=== PATIENT | female | born 1960 | race Caucasian/White ===

== ENCOUNTER 2020-05-14 08:33 | Outpatient (REF) | payer BC, SELFPAY ==
[2020-05-14 12:08] LABS: Vitamin D 25-OH Total 25.7 ng/mL (>30)
== END 2020-05-14 08:34 | disposition home or self-care (01) ==
LOC: HO.HMGCLDS 08:33
PROVIDERS: PCP Internal Medicine; Visit Provider Internal Medicine
DX: E55.9 Vitamin D deficiency, unspecified (principal)
CPT/HCPCS: 82306

== ENCOUNTER 2021-05-19 08:00 | Outpatient (REF) | payer BC, SELFPAY ==
[2021-05-19 11:36] LABS: Hematocrit 42.7 % (37-47); Hemoglobin 13.6 g/dl (12.0-16.0); Mean Corpuscular HGB Conc 31.9 g/dl (31.0-35.0); Mean Platelet Volume 12.5 fL (9.4-12.3); Platelet Count 195 X10*3/uL (160-400); Red Blood Count 4.69 X10*6/uL (4.20-5.50); Red Cell Distribution Width 13.3 % (11.0-16.0)
[2021-05-19 11:45] LABS: Alanine Aminotransferase 24 U/L (0-31); Albumin Level 4.2 g/dL (3.5-5.0); Alkaline Phosphatase 68 U/L (39-117); Anion Gap 10 (12-20); Aspartate Amino Transferase 18 U/L (5-31); Bilirubin Total 0.4 mg/dL (0.0-1.0); Blood Urea Nitrogen 15 mg/dL (9-16); Calcium 9.7 mg/dL (8.4-10.2); Carbon Dioxide 29 mmol/L (22-29); Chloride 107 mmol/L (96-108); Cholesterol 175 mg/dL; Estimated Glomerular Filt Rate > 60; Glucose Fasting 89 mg/dL (60-99); HDL Cholesterol 54 mg/dL; LDL Cholesterol Calculated 106 mg/dl; Potassium 5.4 mmol/L (3.3-5.1); Sodium 141 mmol/L (135-145); Total Protein 6.9 g/dL (6.5-8.0); Triglycerides 77 mg/dL
[2021-05-19 12:10] LABS: Vitamin D 25-OH Total 25.8 ng/mL (>30)
== END 2021-05-19 08:01 | disposition home or self-care (01) ==
LOC: HO.HMGCLDS 08:00
PROVIDERS: PCP Internal Medicine; Visit Provider Internal Medicine
DX: Z00.00 Encounter for general adult medical examination without abnormal findings (principal)
CPT/HCPCS: 36415; 80053; 80061; 82306; 85027

== ENCOUNTER 2021-06-16 16:42 | Outpatient (REF) | payer BC, SELFPAY ==
[2021-06-16 17:28] LABS: Influenza A PCR NEGATIVE (Negative); Influenza B PCR NEGATIVE (Negative); Resp Syncy Virus RNA Qual PCR NEGATIVE (Negative); SARS COV2 PCR INHOUSE NEGATIVE (Negative)
== END 2021-06-16 16:43 | disposition home or self-care (01) ==
LOC: HO.LNP 16:42
PROVIDERS: Visit Provider Physician Assistant Medical
DX: Z20.822 Contact with and (suspected) exposure to COVID-19 (principal); J06.9 Acute upper respiratory infection, unspecified
CPT/HCPCS: 0241U

== ENCOUNTER 2021-08-10 15:14 | Outpatient (REF) | payer OTHER, SELFPAY ==
[2021-08-10 17:06] LABS: Vitamin D 25-OH Total 33.1 ng/mL (>30)
== END 2021-08-10 15:15 | disposition home or self-care (01) ==
LOC: HO.HMGCLDS 15:14
PROVIDERS: PCP Internal Medicine; Visit Provider Internal Medicine
DX: E55.9 Vitamin D deficiency, unspecified (principal)
CPT/HCPCS: 36415; 82306

== ENCOUNTER 2022-02-18 11:03 | Outpatient (REF) | payer OTHER, SELFPAY ==
--- NOTE | ~2022-02-18 | XR_ITS ---
EXAMINATION: XR CHEST CLINICAL INFORMATION: Encountered for general medical examination COMPARISON: None TECHNIQUE: 2 views of the chest were obtained. FINDINGS: Cardiac silhouette is normal in size. The lungs are well aerated. There is no lobar consolidation. No pleural effusion or pneumothorax. Moderate degenerative changes of the spine. XR/XR chest 2V IMPRESSION: No acute pulmonary pathology.
== END 2022-02-18 11:04 | disposition home or self-care (01) ==
LOC: HO.HMGCX 11:03
PROVIDERS: PCP Internal Medicine; Visit Provider Internal Medicine
DX: Z00.00 Encounter for general adult medical examination without abnormal findings (principal)
CPT/HCPCS: 71046

== ENCOUNTER 2022-02-19 06:07 | Outpatient (REF) | payer OTHER, SELFPAY ==
[2022-02-19 11:08] LABS: MANUAL DIFF FLAG NO
[2022-02-19 11:17] LABS: Basophils Percent Auto 0.5 % (0-2); Eosinophils Absolute Auto 0.1 X10*3/uL (0.0-0.4); Hematocrit 40.1 % (37.0-47.0); Imm Gran Abs Auto 0.01 X10*3/uL (0.00-0.03); Imm Gran Pct Auto 0.2 % (0.0-0.4); Lymphocytes Absolute Auto 2.1 X10*3/uL (1.2-4.9); Lymphocytes Percent Auto 31.5 % (20-40); Mean Corpuscular HGB Conc 32.4 g/dl (31.0-35.0); Mean Corpuscular Hemoglobin 29.5 pg (27.0-33.0); Mean Corpuscular Volume 90.9 fL (80.0-98.0); Monocytes Absolute Auto 0.6 X10*3/uL (0.1-1.2); Monocytes Percent Auto 9.2 % (2-11); Neutrophils Absolute Auto 3.7 x10*3/uL (2.0-8.3); Neutrophils Percent Auto 56.6 % (45-73); Platelet Count 159 X10*3/uL (160-400); Red Blood Count 4.41 X10*6/uL (4.20-5.50); Red Cell Distribution Width 13.6 % (11.0-16.0); White Blood Count 6.5 X10*3/uL (4.8-10.8)
[2022-02-19 12:03] LABS: Alanine Aminotransferase 23 U/L (0-31); Alkaline Phosphatase 60 U/L (39-117); Anion Gap 13 (12-20); Aspartate Amino Transferase 21 U/L (5-31); Bilirubin Total 0.5 mg/dL (0.0-1.0); Blood Urea Nitrogen 15 mg/dL (9-16); C Reactive Protein 0.18 mg/dL (< or = 0.50); Calcium 9.2 mg/dL (8.4-10.2); Carbon Dioxide 28 mmol/L (22-29); Chloride 107 mmol/L (96-108); Cholesterol 174 mg/dL; Estimated Glomerular Filt Rate > 60; Glucose Fasting 91 mg/dL (60-99); HDL Cholesterol 65 mg/dL; LDL Cholesterol Calculated 94 mg/dl; Potassium 4.5 mmol/L (3.3-5.1); Sodium 143 mmol/L (135-145); Total Protein 6.6 g/dL (6.5-8.0); Triglycerides 78 mg/dL
[2022-02-23 13:46] LABS: Anti DNA DS Antibody <1 IU/mL
[2022-02-24 23:36] LABS: Complement C3 127 mg/dL (83-193)
== END 2022-02-19 06:08 | disposition home or self-care (01) ==
LOC: HO.HMGCLDS 06:07
PROVIDERS: Visit Provider Internal Medicine
DX: Z00.00 Encounter for general adult medical examination without abnormal findings (principal); R21 Rash and other nonspecific skin eruption; J40 Bronchitis, not specified as acute or chronic; E55.9 Vitamin D deficiency, unspecified
CPT/HCPCS: 36415; 80053; 80061; 85025; 86140; 86160; 86225

== ENCOUNTER 2022-03-15 10:49 | Outpatient (REF) | payer OTHER, SELFPAY ==
[2022-03-15 14:42] LABS: Vitamin D 25-OH Total 56.2 ng/mL (>30)
== END 2022-03-15 10:50 | disposition home or self-care (01) ==
LOC: HO.HMGCLDS 10:49
PROVIDERS: PCP Internal Medicine; Visit Provider Internal Medicine
DX: E55.9 Vitamin D deficiency, unspecified (principal)
CPT/HCPCS: 36415; 82306

== ENCOUNTER 2022-07-07 14:30 | Outpatient (REF) | payer OTHER, SELFPAY ==
[2022-07-07 15:21] LABS: Influenza A PCR POSITIVE (Negative); Influenza B PCR NEGATIVE (Negative); Resp Syncy Virus RNA Qual PCR NEGATIVE (Negative); SARS COV2 PCR INHOUSE NEGATIVE (Negative)
== END 2022-07-07 14:31 | disposition home or self-care (01) ==
LOC: HO.LNP 14:30
PROVIDERS: Visit Provider Nurse Practitioner Family
DX: Z20.822 Contact with and (suspected) exposure to COVID-19 (principal); R68.89 Other general symptoms and signs
CPT/HCPCS: 0241U

== ENCOUNTER 2022-12-28 11:25 | Outpatient (REF) | payer OTHER, SELFPAY ==
--- NOTE | ~2022-12-28 | XR_ITS ---
EXAMINATION: XR ANKLE, RIGHT CLINICAL INFORMATION: Pain in right ankle and joints of right foot COMPARISON: None available. TECHNIQUE: AP, lateral, and mortise views of the right ankle. FINDINGS: There is marked soft tissue swelling over the lateral malleolus. No fracture. Well-corticated ossific density inferior to the medial malleolus and small linear density adjacent to the medial malleolus are likely related to old trauma. Alignment is anatomic. Joint spaces are maintained. No joint effusion. There is a large posterior plantar calcaneal spur and small Achilles enthesophyte with small calcification at the insertion of the Achilles tendon. XR/XR ankle RT 2V IMPRESSION: 1. No acute bony abnormality. 2. Marked soft tissue swelling over the lateral malleolus. 3. Calcaneal spurs.
[2022-12-28 14:01] LABS: MANUAL DIFF FLAG NO
[2022-12-28 14:16] LABS: Basophils Percent Auto 0.3 % (0-2); Eosinophils Absolute Auto 0.1 X10*3/uL (0.0-0.4); Hematocrit 41.1 % (37.0-47.0); Hemoglobin 13.5 g/dl (12.0-16.0); Imm Gran Abs Auto 0.01 X10*3/uL (0.00-0.03); Imm Gran Pct Auto 0.1 % (0.0-0.4); Lymphocytes Absolute Auto 2.2 X10*3/uL (1.2-4.9); Lymphocytes Percent Auto 32.8 % (20-40); Mean Corpuscular HGB Conc 32.8 g/dl (31.0-35.0); Mean Corpuscular Hemoglobin 29.9 pg (27.0-33.0); Mean Corpuscular Volume 91.1 fL (80.0-98.0); Mean Platelet Volume 12.8 fL (9.4-12.3); Monocytes Absolute Auto 0.7 X10*3/uL (0.1-1.2); Monocytes Percent Auto 9.7 % (2-11); Neutrophils Absolute Auto 3.8 x10*3/uL (2.0-8.3); Neutrophils Percent Auto 56.1 % (45-73); Platelet Count 163 X10*3/uL (160-400); Red Blood Count 4.51 X10*6/uL (4.20-5.50); Red Cell Distribution Width 13.3 % (11.0-16.0); White Blood Count 6.7 X10*3/uL (4.8-10.8)
[2022-12-28 14:20] LABS: Appearance Urine Clear; Color Urine Yellow; Glucose Urine UA Negative (Negative); Leukocyte Esterase Urine Negative (Negative); Nitrite Urine Negative (Negative); PH 5.5 (5.0-9.0); UMIC TRIGGER UA YES; Urine Blood Small (1+) (Negative); Urine Ketones Negative (Negative); Urine Protein Negative (Neg-Trace)
[2022-12-28 14:27] LABS: Bacteria Urine None Seen (None Seen); Hyaline Casts Urine 0-2 /LPF (0-2); RBC Urine 0-2 /HPF (0-2); Squamous Epithelial Cell Urine 0-2 /HPF (0-2); WBC Urine 0-5 /HPF (0-5)
[2022-12-28 14:32] LABS: Alanine Aminotransferase 28 U/L (0-31); Albumin Level 4.3 g/dL (3.5-5.0); Alkaline Phosphatase 66 U/L (39-117); Anion Gap 11 (12-20); Aspartate Amino Transferase 24 U/L (5-31); Bilirubin Total 0.7 mg/dL (0.0-1.0); Blood Urea Nitrogen 15 mg/dL (9-16); Calcium 9.9 mg/dL (8.4-10.2); Carbon Dioxide 27 mmol/L (22-29); Chloride 106 mmol/L (96-108); Cholesterol 187 mg/dL; Estimated Glomerular Filt Rate > 60; Glucose Fasting 84 mg/dL (60-99); HDL Cholesterol 72 mg/dL; LDL Cholesterol Calculated 102 mg/dl; Potassium 4.4 mmol/L (3.3-5.1); Sodium 140 mmol/L (135-145); Total Protein 7.1 g/dL (6.5-8.0); Triglycerides 68 mg/dL
== END 2022-12-28 11:26 | disposition home or self-care (01) ==
LOC: HO.HMGCX 11:25
PROVIDERS: PCP Internal Medicine; Visit Provider Internal Medicine
DX: Z00.00 Encounter for general adult medical examination without abnormal findings (principal); M25.571 Pain in right ankle and joints of right foot; E55.9 Vitamin D deficiency, unspecified
CPT/HCPCS: 36415; 73600; 80053; 80061; 81001; 82306; 84443; 85025

== ENCOUNTER 2023-01-19 08:44 | Outpatient (REF) | payer OTHER, SELFPAY ==
[2023-01-19 11:29] LABS: Urine Cytology See Pathology rpt
[2023-01-19 11:34] LABS: Appearance Urine Clear; Color Urine Yellow; Glucose Urine UA Negative (Negative); Leukocyte Esterase Urine Negative (Negative); Nitrite Urine Negative (Negative); PH 5.5 (5.0-9.0); Urine Blood Negative (Negative); Urine Ketones Negative (Negative); Urine Protein Negative (Neg-Trace)
== END 2023-01-19 08:45 | disposition home or self-care (01) ==
LOC: HO.HMGCLDS 08:44
PROVIDERS: PCP Internal Medicine; Visit Provider Nurse Practitioner Family
DX: R31.29 Other microscopic hematuria (principal)
CPT/HCPCS: 81003; 88112

== ENCOUNTER 2023-02-03 10:25 | Outpatient (AMB) | payer OTHER, SELFPAY ==
--- NOTE | 2023-02-03 10:25 | A.OFFVIS_ITS ---
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 Complaints include pain over varicosities, swelling of lower extremities, cramping, fatigue, and heaviness of the lower extremities. 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 It is noted more so in right leg. Patient reports prior right lower extremity venous ablation by Dr. Hernandez after which she had a significant complication. She denies being on any anticoagulant Patient denies any history of DVT/ PE. Patient denies any history of phlebitis. Trial of compression includes - [id number] They now present for vascular evaluation regarding their varicose veins. [facility] Medical History Annual physical exam Bilateral carotid bruits COVID-19 Flu-like symptoms Leg pain, left Sinusitis TIA (transient ischemic attack) Vitamin D deficiency Family History Father No problems noted. Mother Hypertension CHF (congestive heart failure) Sister Mental health disorder Social History Housing: House Patient Tobacco Use Status: Never used Tobacco e-Cigarette/Vaping Use: Never Used Current occupational status: employed Cognitive needs: No Hearing needs: No Vision needs: Yes Review of Systems Const Reports as per HPI ENT Reports no additional complaints Card Denies chest pain, Denies chest pain at rest and Denies chest pain with activity Resp Denies chest congestion and Denies cough GI Reports no additional complaints Musc Details: pain over varicosities, aching of lower extremities, swelling, cramping, heaviness and tiredness, itching Denies abnormal gait Skin/Breast Reports pruritus and Denies wounds Neuro Reports no additional complaints and Denies abnormal gait Psych Denies no additional complaints Physical Exam Const General: cooperative, healthy appearing and comfortable Orientation/consciousness: oriented to person, oriented to place and oriented to time Neck Carotids: no bruits Chest Chest palpation & inspection: normal inspection of the chest and normal palpation of entire chest wall Resp Effort & Inspection: normal respiratory effort and able to speak in complete sentences Cardio Rate: regular rate Heart sounds: S1 normal heart sound present and S2 normal heart sound present Peripheral pulses: Peripheral pulses 2+ throughout GI Inspection: Yes normal to inspection Skin Other: +2 edema, large rope-like varicosities greater than 4 mm - right medial thigh and left over the knee CEAP Classification C4 - skin color changes Ep - Etiology Primary As - superficial veins P - reflux General skin exam: dry skin Neuro General: oriented to person, oriented to place and oriented to time Extrem Right lower extremity: full ROM, normal capillary refill and edema Left lower extremity: full ROM, normal capillary refill and edema Psych Mental Status: mental status grossly normal Assessment & Plan Assessment & Plan (1) Varicose veins of right lower extremity with inflammation: Code(s): I83.11 - Varicose veins of right lower extremity with inflammation Plan: In short, the patient has evidence of venous insufficiency. I have discussed the pathophysiology with the patient. In addition I have provided informational material regarding venous disease to the patient. We have discussed conservative measures including compression, elevation, and exercise. I have also provided a handout regarding appropriate use of compression stockings and where to purchase good compression stockings as well. I have taken the liberty of ordering venous insufficiency testing with the patient. They will follow up with me after testing. The patient had an opportunity to ask questions regarding the treatment plan. All questions were answered. Imaging studies, laboratory studies and physical exam results were discussed and reviewed in detail. No major barriers to understanding were identified. The patient expressed understanding and agreement with the above treatment plan. The patient is aware they should contact our office by phone for worsening of the current condition or the appearance of new symptoms. Thank you for allowing me to participate in the vascular care of this patient. If you have any questions or concerns regarding the treatment for the above condition please do not hesitate to contact me. The office telephone contact is [phone]. This note is constructed using voice recognition software. While every effort has been made to ensure accuracy, bill clerk errors may have been included. Thank you for allowing me to participate in the care of your patient. Yours sincerely, Justin Johnston MD, FACS, R.P.V.I. Orders: Orders US venous duplex LE BI 1 Week I83.11 - Varicose veins of right lower extremity with inflammation Coding Level of Care Code New Pt Level 4 (71080) Diagnoses Varicose veins of right lower extremity with inflammation I83.11
== END 2023-02-03 10:55 | disposition home or self-care (01) ==
LOC: HO.HVS 10:25
PROVIDERS: PCP Internal Medicine; Visit Provider Surgery Vascular Surgery
DX: I83.11 Varicose veins of right lower extremity with inflammation (principal)
CPT/HCPCS: 99213

== ENCOUNTER → 2023-02-03 10:25 | Outpatient (BNVA) | payer OTHER, SELFPAY | PROVIDERS: PCP Internal Medicine; Visit Provider Surgery Vascular Surgery ==

== ENCOUNTER 2023-02-04 10:29 | Outpatient (REF) | payer OTHER, SELFPAY ==
--- NOTE | ~2023-02-04 | US_ITS ---
EXAMINATION: US RETROPERITONEAL COMPLETE (RENAL) CLINICAL INFORMATION: Other microscopic hematuria. COMPARISON: None available. TECHNIQUE: Real-time imaging of the kidneys and bladder. FINDINGS: RIGHT KIDNEY: 9.6 x 4.7 x 6.0 cm (SAG x AP x TRV). The kidney is normal in size, contour, and echogenicity. Renal cortical thickness is normal. No renal calculi or hydronephrosis. 1.4 x 1.4 x 1.5 cm simple lower pole cyst is seen. No imaging follow-up is recommended. LEFT KIDNEY: 9.8 x 5.7 x 6.4 cm (SAG x AP x TRV). The kidney is normal in size, contour, and echogenicity. Renal cortical thickness is normal. No renal calculi or hydronephrosis. 4.9 x 3.1 x 4.1 cm simple lower pole cyst is seen. No imaging follow-up is recommended. BLADDER: Well distended and normal. Bilateral ureteral jets are demonstrated. Prevoid bladder volume is 423 mL. Postvoid bladder volume is 44.8 mL. US/US retroperitoneal comp IMPRESSION: 1. Normal renal ultrasound. 2. Small post void residual.
== END 2023-02-04 10:30 | disposition home or self-care (01) ==
LOC: HO.HMGCX 10:29
PROVIDERS: PCP Internal Medicine; Visit Provider Internal Medicine
DX: R31.29 Other microscopic hematuria (principal)
CPT/HCPCS: 76770

== ENCOUNTER 2023-03-14 08:35 | Outpatient (REF) | payer OTHER, SELFPAY ==
--- NOTE | ~2023-03-14 | US_ITS ---
EXAMINATION: US LOWER EXTREMITY VENOUS (REFLUX EXAM), BILATERAL CLINICAL INDICATION: Chronic venous insufficiency with lower extremity varicose veins and inflammation. History of prior right great saphenous vein ablation COMPARISON: None. TECHNIQUE: Color flow triplex imaging and compression Doppler was performed to evaluate both the deep and the superficial systems bilaterally. To evaluate the superficial system, the examination was performed in the upright position. Color-flow Doppler ultrasound and compression ultrasound were utilized. In addition, maneuvers were utilized to demonstrate reflux. FINDINGS: 1. DEEP VENOUS ULTRASOUND OF THE RIGHT LOWER EXTREMITY: Common Femoral Vein: Compressible, normal respiratory variation and augmented flow. Femoral Vein: Compressible, normal color flow and augmentation. Popliteal Vein: Compressible, normal augmentation. Deep Reflux: Mild deep venous reflux is seen in the right superficial femoral vein measuring 912 ms There is no evidence of a Kelly's cyst. 2. SUPERFICIAL ULTRASOUND WITH DOPPLER OF RIGHT LOWER EXTREMITY: GREAT SAPHENOUS VEIN: Saphenofemoral Junction: 0.7 cm; Reflux: 0 ms Proximal Thigh: Not visualized Mid Thigh: Not visualized Above Knee: Not visualized At Knee: Not visualized Below Knee: Not visualized Mid Calf: Not visualized Ankle: 0.5 cm; Reflux: 0 ms DUPLICATED MEDIAL GREAT SAPHENOUS VEIN: Diameter: None imaged Reflux: NA DUPLICATED LATERAL GREAT SAPHENOUS VEIN: Diameter: 0.4 cm Reflux: None SMALL SAPHENOUS VEIN: Proximal: 0.1 cm; Reflux: 0 ms Distal: 0.3 cm; Reflux: 0 ms VEIN OF GIACOMINI: Size: NA Reflux: NA PERFORATORS: Location: Posterior calf is slightly and distal calf into the varicosity Size: 0.3 to 0.7 cm Reflux: None VARICOSITIES: Location: Posterior mid calf off the small saphenous vein, mid thigh, knee and proximal calf Size: 0.3 to 0.6 cm Reflux: Ranging from 2076 ms to 2744 ms 3. DEEP VENOUS ULTRASOUND OF THE LEFT LOWER EXTREMITY: Common Femoral Vein: Compressible, normal respiratory variation and augmented flow. Femoral Vein: Compressible, normal color flow and augmentation. Popliteal Vein: Compressible, normal augmentation. Deep Reflux: There is mild reflux in the popliteal vein measuring 852 ms There is no evidence of a Kelly's cyst. 4. SUPERFICIAL ULTRASOUND WITH DOPPLER OF LEFT LOWER EXTREMITY: GREAT SAPHENOUS VEIN: Saphenofemoral Junction: 0.7 cm; Reflux: 0 ms Proximal Thigh: 0.4 cm; Reflux: 2372 ms Mid Thigh: 0.4 cm; Reflux: 0 ms Above Knee: 0.5 cm; Reflux: 0 ms At Knee: 0.7 cm; Reflux: 0 ms Below Knee: 0.5 cm; Reflux: 2852 ms Mid Calf: 0.4 cm; Reflux: 2164 ms Ankle: 0.2 cm; Reflux: 0 ms DUPLICATED MEDIAL GREAT SAPHENOUS VEIN: Diameter: 0.2 cm Reflux: None DUPLICATED LATERAL GREAT SAPHENOUS VEIN: Diameter: None imaged Reflux: NA SMALL SAPHENOUS VEIN: Proximal: 0.1 cm; Reflux: 0 ms Distal: 0.2 cm; Reflux: 0 ms VEIN OF GIACOMINI: Size: NA Reflux: NA PERFORATORS: Location: Mid thigh, knee, mid calf and distal calf Size: Ranging from 0.2 to 0.6 cm Reflux: None VARICOSITIES: Location: Mid thigh and proximal calf Size: 0.3 to 0.4 cm Reflux: Ranging from 1548 ms to 3160 ms US/US venous duplex LE BI IMPRESSION: Right: Closure of the right great saphenous vein consistent with prior ablation. Extensive varicosities seen throughout the medial aspect of the right thigh and calf with severe reflux. Left: Segmental areas of severe reflux in the left great saphenous vein within the thigh and calf. Varicose veins seen within the thigh and calf with reflux as described above
== END 2023-03-14 08:36 | disposition home or self-care (01) ==
LOC: HO.US 08:35
PROVIDERS: Visit Provider Surgery Vascular Surgery
DX: I83.11 Varicose veins of right lower extremity with inflammation (principal)
CPT/HCPCS: 93970

== ENCOUNTER 2023-03-30 09:35 | Outpatient (AMB) | payer OTHER, SELFPAY ==
[2023-03-30 09:42] VITALS: BP 120/74; PULSE 74; O2SAT 97; BMI 34.2
--- NOTE | 2023-03-30 09:42 | A.OFFPC_ITS ---
Vital Signs 03/30/23 09:42 Height 5 ft 4 in Weight 199 lb BMI 34.2 BP 120/74 Blood Pressure Location Lt brachial Position Sitting Pulse 74 Pulse Source Pulse Oximeter Pulse Oximetry (%) 97 Oxygen Delivery Method Room Air Intake Visit Reasons: PE Intake Note: Pt is here today for PE. Allergies No Known Allergies Allergy (Verified 03/30/23 09:43) Medication List - Last Reconciled 03/30/23 by Heike Gomez MD albuterol sulfate 90 mcg/actuation 1 puff PO Q4H PRN cholecalciferol (vitamin D3) 50 mcg PO DAILY comp.stocking,thigh,long,large 20-30 mmHg compr.stocking,knee,long,large 20-30 mmHg ibuprofen 200 mg PO Q6H PRN Tobacco use date assessed: 12/28/22 Dental Screening Dental Screen Date: 03/30/23 Did you have a dental visit in the last 12 months?: Yes Did you have a dental problem in the last 6 months where you did not have access to dental care?: No Was dental information given to patient?: Patient has dentist HPI PE HPI Details Pt presents for PE. Pt c/o LBP radiating to RLE since has been walking a lot in [place] and rode a bike afterward on 03/09. Pt has been taking Advil 400 mg tid with some relief. Patient denies any weakness or numbness in extremities or change in bowel or bladder function. [facility] Medical History (Updated 03/30/23 @ 10:08 by Heike Gomez MD) Annual physical exam Bilateral carotid bruits COVID-19 Flu-like symptoms Leg pain, left Sinusitis TIA (transient ischemic attack) Vitamin D deficiency Family History Father No problems noted. Mother Hypertension CHF (congestive heart failure) Sister Mental health disorder Social History Housing: House Patient Tobacco Use Status: Never used Tobacco e-Cigarette/Vaping Use: Never Used Current occupational status: employed Cognitive needs: No Hearing needs: No Vision needs: Yes Questionnaire Thrive Questionnaire Date Thrive assessed: 12/28/22 JIGAR-7 AMB Questionnaire JIGAR-7 Date JIGAR - 7 assessed: 12/28/22 Source: Developed by Drs. Everardo Ferrara, Jenn Jaime, Luis Fernando Sawant and colleagues, with an educational sahra from [employer]. Review of Systems Const All systems reviewed & are unremarkable except as noted in HPI and below Reports no additional complaints Eyes Reports no additional complaints ENT Reports no additional complaints Card Reports no additional complaints Resp Reports no additional complaints GI Reports no additional complaints Reports no additional complaints Physical exam (Primary Care) Vital Signs: Last Vital Signs Pulse 74 03/30/23 09:42 BP 120/74 03/30/23 09:42 Pulse Ox 97 03/30/23 09:42 Oxygen Delivery Method Room Air 03/30/23 09:42 BMI result Body Mass Index 34.2 Tobacco/Smoking Status: Tobacco use Status Tobacco use date assessed 12/28/22 03/30/23 09:49 Patient Tobacco Use Status Never used Tobacco 03/30/23 09:49 e-Cigarette/Vaping Use Never Used 03/30/23 09:49 Thrive Assessment: Date of Thrive Assessment Date Thrive assessed 12/28/22 03/30/23 09:49 Const General: no acute distress HENMT Head: Yes normal to inspection Ears: hearing grossly normal bilaterally General nose exam: Normal external nose present Face and sinus: Yes normal facial exam Mouth: Normal oral and palatal mucosa present Throat: Yes posterior oropharynx normal Eyes General: appearance normal, both eyes and all related structures Neck Neck: Yes no lymphadenopathy and Yes supple Resp Effort & Inspection: normal respiratory effort Auscultation: clear to auscultation bilaterally Cardio Rhythm: regular rhythm Heart sounds: S1 normal heart sound present and S2 normal heart sound present GI Inspection: Yes normal to inspection Palpation (GI): Soft to palpation Percussion: Yes normal to percussion Auscultation: normal bowel sounds Back/Spine/Pelvis Other: Paraspinal tenderness in lower lumbar region right more than left, straight leg rising 90 degrees bilaterally, right hip full range of motion Assessment and Plan Assessment & Plan (1) Annual physical exam: Code(s): Z00.00 - Encounter for general adult medical examination without abnormal findings Plan: Well-balanced and regular physical activity discussed with the patient. She is up today with a mammogram through [facility] and Pap smear through [facility]. Patient will be referred to GI for colonoscopy (2) Hx of colonoscopy: Comment: Dr. Silverio at 52 Code(s): Z98.890 - Other specified postprocedural states Plan: Schedule for screening colonoscopy (3) Sciatica: Code(s): M54.30 - Sciatica, unspecified side Plan: Meloxicam 15 mg daily for 10 days is prescribed. patient will be referred to physical therapy. she will have schedule an appointment with PT closer to her home Orders: Orders XR lumbar spine 2-3V Today M54.30 - Sciatica, unspecified side PT Evaluation and Treatment Today M54.30 - Sciatica, unspecified side Referrals Gastroenterology Referral Z00.00 - Encounter for general adult medical examination without abnormal findings Medications: New meloxicam 15 mg PO DAILY 10 tabs 0RF Refilled albuterol sulfate 90 mcg/actuation 1 puff PO Q4H PRN 8.5 grams 4RF wheezing Coding Level of Care Code Est Pt Prev Care 40-64y(40403) Diagnoses Annual physical exam Z00.00 Hx of colonoscopy Z98.890 Sciatica M54.30
== END 2023-03-30 10:21 | disposition home or self-care (01) ==
PROVIDERS: PCP Internal Medicine; Visit Provider Internal Medicine
DX: Z00.00 Encounter for general adult medical examination without abnormal findings (principal); Z98.890 Other specified postprocedural states; M54.30 Sciatica, unspecified side
CPT/HCPCS: 99396

== ENCOUNTER 2023-03-30 10:16 | Outpatient (REF) | payer OTHER, SELFPAY ==
--- NOTE | ~2023-03-30 | XR_ITS ---
EXAMINATION: XR LUMBOSACRAL SPINE CLINICAL INFORMATION: Sciatica. COMPARISON: None available. TECHNIQUE: Three views of the lumbosacral spine. FINDINGS: There is normal lumbar lordosis. The vertebral heights, alignment and disc heights are normal. No visible acute fracture, dislocation or subluxation seen. There is mild endplate spondylosis L3-L4 disc level. The paravertebral soft tissues are normal. XR/XR lumbar spine 2-3V IMPRESSION: Mild endplate spondylosis L3-L4 disc level. No visible acute fracture, dislocation or lytic process seen.
== END 2023-03-30 10:17 | disposition home or self-care (01) ==
LOC: HO.HMGCX 10:16
PROVIDERS: PCP Internal Medicine; Visit Provider Internal Medicine
DX: M54.30 Sciatica, unspecified side (principal)
CPT/HCPCS: 72100

== ENCOUNTER 2023-04-05 13:08 | Outpatient (AMB) | payer OTHER, SELFPAY ==
[2023-04-05 13:13] VITALS: BP 120/76; PULSE 74; O2SAT 97; BMI 33.0
--- NOTE | 2023-04-05 13:13 | A.OFFVIS_ITS ---
Intake Vital Signs 04/05/23 13:13 Height 5 ft 4 in Weight 192 lb BMI 33.0 BP 120/76 Blood Pressure Location Rt brachial Position Sitting Pulse 74 Pulse Source Pulse Oximeter Pulse Oximetry (%) 97 Oxygen Delivery Method Room Air Intake Visit Reasons: Follow Up 03/14 US Intake Note: Pt presents to the office today for a follow up US done on 03/14. Pt states she has more swelling and pain her right leg than in her left. Pt states sometimes the swelling is so bad it feels like the skin is pulling. Pt states she wears compression stockings everyday for many years which she states does help the swelling and pain to a certain degree. Pt states she gets numbness and tingling in her left leg but not in her right leg. 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 She has had no interval issues. She reports some mild swelling and discomfort. She now presents for follow-up. She does report prior venous ablation by Dr. Patricio where she had significant complications. She has had no other interval issues. She continues to have some mild swelling and discomfort. She does report some improvement with meloxicam. She now presents for follow-up with venous insufficiency testing. [facility] Medical History Flu-like symptoms COVID-19 TIA (transient ischemic attack) Sinusitis Bilateral carotid bruits Leg pain, left Vitamin D deficiency Annual physical exam Family History Father No problems noted. Mother Hypertension CHF (congestive heart failure) Sister Mental health disorder Social History Housing: House Patient Tobacco Use Status: Never used Tobacco e-Cigarette/Vaping Use: Never Used Current occupational status: employed Cognitive needs: No Hearing needs: No Vision needs: Yes Review of Systems Const Reports as per HPI ENT Reports no additional complaints Card Denies chest pain, Denies chest pain at rest and Denies chest pain with activity Resp Denies chest congestion and Denies cough GI Reports no additional complaints Musc Details: pain over varicosities, aching of lower extremities, swelling, cramping, heaviness and tiredness, itching Denies abnormal gait Skin/Breast Reports pruritus and Denies wounds Neuro Reports no additional complaints and Denies abnormal gait Psych Denies no additional complaints Physical Exam Vital Signs: Last Vital Signs Pulse 74 04/05/23 13:13 BP 120/76 04/05/23 13:13 Pulse Ox 97 04/05/23 13:13 Oxygen Delivery Method Room Air 04/05/23 13:13 BMI result Body Mass Index 33.0 Const General: cooperative, healthy appearing and comfortable Orientation/consciousness: oriented to person, oriented to place and oriented to time Neck Carotids: no bruits Chest Chest palpation & inspection: normal inspection of the chest and normal palpation of entire chest wall Resp Effort & Inspection: normal respiratory effort and able to speak in complete sentences Cardio Rate: regular rate Heart sounds: S1 normal heart sound present and S2 normal heart sound present Peripheral pulses: Peripheral pulses 2+ throughout GI Inspection: Yes normal to inspection Skin Other: +2 edema, General skin exam: dry skin Neuro General: oriented to person, oriented to place and oriented to time Extrem Right lower extremity: full ROM, normal capillary refill and edema Left lower extremity: full ROM, normal capillary refill and edema Psych Mental Status: mental status grossly normal Results Reviewed Results Reviewed: Brief summary of venous insufficiency testing is as follows: right great saphenous vein: negative right small saphenous vein: negative right accessory vein: none present left great saphenous vein: negative left small saphenous vein: negative left accessory vein: none present Please note there is no evidence of any venous aneurysms or significant tortuosity Assessment & Plan Assessment & Plan (1) Varicose veins of right lower extremity with inflammation: Code(s): I83.11 - Varicose veins of right lower extremity with inflammation Plan: In short patient is negative for any significant venous insufficiency. She does reports some improvement with meloxicam. May benefit from the use of a diuretic as well. We did discuss routine conservative measures including compression elevation and exercise. She will follow up with us on an as-needed basis. Thank you for allowing us to assist in her care. If there are any questions or concerns please do not hesitate to contact us. Coding Level of Care Code Est Pt Level 4 (85459) Diagnoses Varicose veins of right lower extremity with inflammation I83.11
== END 2023-04-05 13:40 | disposition home or self-care (01) ==
PROVIDERS: PCP Internal Medicine; Visit Provider Surgery Vascular Surgery
DX: I83.11 Varicose veins of right lower extremity with inflammation (principal)
CPT/HCPCS: 99213

== ENCOUNTER → 2023-04-05 13:08 | Outpatient (BNVA) | payer OTHER, SELFPAY | PROVIDERS: PCP Internal Medicine; Visit Provider Surgery Vascular Surgery ==

== ENCOUNTER 2023-05-26 11:31 | Outpatient (AMB) | payer OTHER, SELFPAY ==
--- NOTE | 2023-05-26 11:34 | MHC.OFFVIS ---
Intake Vital Signs 05/26/23 11:35 Height 5 ft 4 in Weight 201 lb 8.04 oz BMI 34.6 BP 134/78 Blood Pressure Location Lt brachial Position Sitting Pulse 67 Pulse Source Pulse Oximeter Intake Visit Reasons: Colonoscopy Screening Intake Note: Pt presents to the office today for a colonoscopy screening. Pt states she is overall feeling well. Pt denies any GI concerns at this time. Allergies No Known Allergies Allergy (Verified 05/26/23 11:35) HPI Colonoscopy Screening HPI Details 62 year old? female here today for pre colonoscopy screening.? Patient was sent to us by her PCP.? ? Patient denies any gastrointestinal symptoms in the past or at present.? Denies any personal or family history of gastrointestinal disease, colon polyps, or cancer.? Denies history of difficulty with sedation or anesthesia in the past.? Negative for history of sleep apnea.? Denies any history of cardiac, renal, pulmonary, or hepatic disease.?? No history of infectious? diseases like hepatitis A, B, C, HIV or tuberculosis.? Patient is not on any anticoagulation therapy. [facility] Medical History Flu-like symptoms COVID-19 TIA (transient ischemic attack) Sinusitis Bilateral carotid bruits Leg pain, left Vitamin D deficiency Annual physical exam Family History Father No problems noted. Mother Hypertension CHF (congestive heart failure) Sister Mental health disorder (Updated 05/26/23 @ 11:39 by Sherry Biggs MA) Housing: House Alcohol intake: current Alcohol intake frequency: a few times a month Patient Tobacco Use Status: Never used Tobacco e-Cigarette/Vaping Use: Never Used Current occupational status: employed Cognitive needs: No Hearing needs: No Vision needs: Yes Review of Systems Const Denies weight gain and Denies weight loss ENT Reports no additional complaints, Denies dysphagia and Denies odynophagia Card Reports no additional complaints Resp Reports no additional complaints GI Denies abdominal pain, Denies belching, Denies melena, Denies bloating, Denies change in bowel habits, Denies dysphagia, Denies excessive flatus, Denies dyspepsia, Denies heartburn, Denies diarrhea, Denies loose stools, Denies nausea, Denies odynophagia and Denies vomiting Musc Reports no additional complaints Neuro Reports no additional complaints Psych Reports no additional complaints Endo Reports no additional complaints Physical Exam Vital Signs: Last Vital Signs Pulse 67 05/26/23 11:35 BP 134/78 05/26/23 11:35 BMI result Body Mass Index 34.6 Const General: healthy appearing, no acute distress and well developed Nutritional Appearance: obese Orientation/consciousness: patient oriented x3 HEENT Head: Yes normal to inspection, Yes normocephalic and Yes atraumatic Face and sinus: Yes normal facial exam Mouth: Normal oral and palatal mucosa present Throat: Yes posterior oropharynx normal, Yes tonsils normal and Yes uvula midline Eyes General: appearance normal, both eyes and all related structures Neck Neck: Yes normal visual inspection, Yes full ROM and Yes trachea midline Thyroid: Thyroid normal Resp Effort & Inspection: normal respiratory effort, able to speak in complete sentences, no tracheal deviation and symmetric chest movement Auscultation: clear to auscultation bilaterally Cardio Rate: regular rate Heart sounds: S1 normal heart sound present and S2 normal heart sound present GI Inspection: Yes normal to inspection, No distended and Yes obesity Palpation (GI): Soft to palpation, not firm, nontender and No hepatosplenomegaly present Auscultation: normal bowel sounds General: Yes no CVA tenderness Back/Spine/Pelvis Back: no CVA tenderness Skin General skin exam: elasticity normal, turgor normal and dry skin Neuro General: patient oriented x3 Psych Appearance: grossly normal Mental Status: mental status grossly normal Speech and movement: Normal speech and movement present Assessment & Plan Assessment & Plan (1) Hx of colonoscopy: Comment: Dr. Silverio at 53 Code(s): Z98.890 - Other specified postprocedural states (2) Screen for colon cancer: Code(s): Z12.11 - Encounter for screening for malignant neoplasm of colon Plan Patient denies any GI, cardiac or respiratory symptoms.? Denies any issues with anesthesia in the past.? Denies any history of sleep apnea.? No history infectious diseases in the past or present.? Not on any anticoagulation therapy.? No family or personal history of colon cancer or polyps.? Patient denies melena, hematochezia, unintentional weight loss or ribbon like stools.? Discussed at length the pre-procedure,? prep, diet & medications as well as what to expect prior, during and after the procedure.?? Stressed the importance of good bowel prep. ?Recommended the use of Vaseline or Calmoseptine OTC & baby wipes with bowel movements to promote comfort.? ?Patient verbalizes understanding and agrees to plan of care.? She was given the opportunity to ask questions and all questions answered.? We will see her after the procedure.? Medications: New bisacodyl (Dulcolax (bisacodyl)) take 2 tabs at noon the day before your colonoscopy 10 mg (2 x 5 mg) PO ONCE 2 tabs 0RF 1 day Z12.11 - Encounter for screening for malignant neoplasm of colon polyethylene glycol 3350 (Miralax) As directed by gastroenterology department at [facility] 238 grams PO ONCE 238 grams 0RF Z12.11 - Encounter for screening for malignant neoplasm of colon Coding Level of Care Code New Pt Level 3 (99240) Diagnoses Hx of colonoscopy Z98.890 Screen for colon cancer Z12.11 Time Spent (min) 40 Comment 30 minutes spent with patient and additional 10 minutes spent reviewing her records
[2023-05-26 11:35] VITALS: BP 134/78; PULSE 67; BMI 34.6
== END 2023-05-26 12:56 | disposition home or self-care (01) ==
PROVIDERS: PCP Internal Medicine; Visit Provider Nurse Practitioner Family
DX: Z98.890 Other specified postprocedural states (principal); Z12.11 Encounter for screening for malignant neoplasm of colon
CPT/HCPCS: 99203

== ENCOUNTER → 2023-05-26 11:31 | Outpatient (BNVA) | payer OTHER, SELFPAY | PROVIDERS: PCP Internal Medicine; Visit Provider Nurse Practitioner Family ==

== ENCOUNTER 2023-06-22 10:36 | Outpatient (AMB) | payer OTHER, SELFPAY ==
--- NOTE | 2023-06-22 10:39 | MHC.OFFVIS ---
Intake Vital Signs 06/22/23 10:41 Height 5 ft 4 in Weight 196 lb 3.382 oz BMI 33.7 Intake Visit Reasons: rectal bleed per Lucinda Allergies No Known Allergies Allergy (Verified 06/22/23 10:41) HPI rectal bleed per Lucinda HPI Details LAST VISIT Hx of colonoscopy Screen for colon cancer Plan Patient denies any GI, cardiac or respiratory symptoms.? Denies any issues with anesthesia in the past.? Denies any history of sleep apnea.? No history infectious diseases in the past or present.? Not on any anticoagulation therapy.? No family or personal history of colon cancer or polyps.? Patient denies melena, hematochezia, unintentional weight loss or ribbon like stools.? Discussed at length the pre-procedure,? prep, diet & medications as well as what to expect prior, during and after the procedure.?? Stressed the importance of good bowel prep. ?Recommended the use of Vaseline or Calmoseptine OTC & baby wipes with bowel movements to promote comfort.? ?Patient verbalizes understanding and agrees to plan of care.? She was given the opportunity to ask questions and all questions answered.? We will see her after the procedure.? Medications New bisacodyl (Dulcolax (bisacodyl)) take 2 tabs at noon the day before your colonoscopy 10 mg (2 x 5 mg) PO ONCE 2 tabs 0RF 1 day Z12.11 polyethylene glycol 3350 (Miralax) As directed by gastroenterology department at [facility] 238 grams PO ONCE 238 grams 0RF Z12.11 TODAY'S VISIT Patient is here today for follow-up and for requested visit. Patient reports that she has blood with bowel movements. During last visit patient has not had any blood or any black stools. Patient is upset that her colonoscopy is not going to be until August. Discussed with surgical schedulers about bulking patient sooner. Patient is to call weekly to see if anything opens up. Patient also reports pain/burning when wiping after bowel movements [facility] Medical History Flu-like symptoms COVID-19 TIA (transient ischemic attack) Sinusitis Bilateral carotid bruits Leg pain, left Vitamin D deficiency Annual physical exam Family History Father No problems noted. Mother Hypertension CHF (congestive heart failure) Sister Mental health disorder Social History (Updated 05/26/23 @ 11:39 by Sherry Biggs MA) Housing: House Alcohol intake: current Alcohol intake frequency: a few times a month Patient Tobacco Use Status: Never used Tobacco e-Cigarette/Vaping Use: Never Used Current occupational status: employed Cognitive needs: No Hearing needs: No Vision needs: Yes Review of Systems Const Denies weight gain and Denies weight loss ENT Reports no additional complaints, Denies dysphagia and Denies odynophagia Card Reports no additional complaints Resp Reports no additional complaints GI Denies abdominal pain, Denies belching, Denies melena, Denies bloating, Reports hematochezia, Denies change in bowel habits, Denies dysphagia, Denies excessive flatus, Denies dyspepsia, Denies heartburn, Denies diarrhea, Denies loose stools, Denies nausea, Denies odynophagia and Denies vomiting Reports no additional complaints Musc Reports no additional complaints Neuro Reports no additional complaints Psych Reports no additional complaints Endo Reports no additional complaints Physical Exam Vital Signs: BMI result Body Mass Index 33.7 Const General: healthy appearing, no acute distress and well developed Nutritional Appearance: obese Orientation/consciousness: patient oriented x3 HEENT Head: Yes normal to inspection, Yes normocephalic and Yes atraumatic Face and sinus: Yes normal facial exam Mouth: Normal oral and palatal mucosa present Throat: Yes posterior oropharynx normal, Yes tonsils normal and Yes uvula midline Eyes General: appearance normal, both eyes and all related structures Neck Neck: Yes normal visual inspection, Yes full ROM and Yes trachea midline Thyroid: Thyroid normal Resp Effort & Inspection: normal respiratory effort, able to speak in complete sentences, no tracheal deviation and symmetric chest movement Auscultation: clear to auscultation bilaterally Cardio Rate: regular rate GI Inspection: Yes normal to inspection, No distended and Yes obesity Palpation (GI): Soft to palpation, not firm, nontender and No hepatosplenomegaly present Auscultation: normal bowel sounds Rectal Exam - Female: External hemorrhoid(s) present and Anal fissure(s) present General: Yes no CVA tenderness Back/Spine/Pelvis Back: no CVA tenderness Skin General skin exam: elasticity normal, turgor normal and dry skin Neuro General: patient oriented x3 Psych Appearance: grossly normal Mental Status: mental status grossly normal Assessment & Plan Assessment & Plan (1) Hx of colonoscopy: Comment: Dr. Silverio at 53 Code(s): Z98.890 - Other specified postprocedural states (2) Rectal bleed: Code(s): K62.5 - Hemorrhage of anus and rectum Plan Rectal exam done and patient has small fissure and external hemorrhoids. Patient will do Sitz baths. Try to use Epsom salts. Patient is unable to take hydrocortisone. Patient had a reaction and we will not give her script. Can try [id number] and Calmoseptine. Wipe with wet wipes. Patient will call surgical schedule hours weekly to see if any spots open for colonoscopy. I will see her after the procedure. Patient will call our office if she will have any GI concerning symptoms. She is agreeable to this plan and verbalizes understanding of instructions. She was given the opportunity to ask questions and all questions answered. Thank you for allowing me to participate in her care Coding Level of Care Code Est Pt Level 3 (41439) Diagnoses Hx of colonoscopy Z98.890 Rectal bleed K62.5 Time Spent (min) 30 Comment 20 minutes spent with patient and additional 10 minutes spent reviewing her records
[2023-06-22 10:41] VITALS: BMI 33.7
== END 2023-06-22 12:39 | disposition home or self-care (01) ==
PROVIDERS: PCP Internal Medicine; Visit Provider Nurse Practitioner Family
DX: Z98.890 Other specified postprocedural states (principal); K62.5 Hemorrhage of anus and rectum
CPT/HCPCS: 99213

== ENCOUNTER → 2023-06-22 10:36 | Outpatient (BNVA) | payer OTHER, SELFPAY | PROVIDERS: PCP Internal Medicine; Visit Provider Nurse Practitioner Family ==

== ENCOUNTER 2023-09-06 08:45 | Day surgery (SDC) | payer OTHER, SELFPAY ==
[2023-09-02 14:22] VITALS: BMI 33.6
--- NOTE | 2023-09-05 12:10 | HO.ANESPROP2 ---
Documented by User: Vinita Dai NP 09/05/23 12:11 HPI - Anesthesia Eval Consult details Narrative: 63yo F for Colonoscopy PMFSH Active Problems Active Problems: All Active Problems (Updated 04/06/23 @ 15:45 by Heike Gomez MD) Left knee pain (Acute) Sciatica (Acute) Hx of colonoscopy (Acute) Varicose veins of right lower extremity with inflammation (Acute) Microhematuria (Acute) Ankle pain, right (Acute) Venous insufficiency of both lower extremities (Acute) Flu-like symptoms (Acute) Allergic rhinitis (Acute) Rash (Acute) Bronchitis (Acute) COVID-19 (Acute) TIA (transient ischemic attack) (Acute) Sinusitis (Acute) Bilateral carotid bruits (Acute) Viral illness (Acute) Leg pain, left (Acute) Vitamin D deficiency (Acute) Annual physical exam (Acute) Past Medical History Medical History (Updated 09/06/23 @ 09:59 by Zita Zafar MD) Bronchitis Microhematuria SOB (shortness of breath) Flu-like symptoms COVID-19 TIA (transient ischemic attack) Sinusitis Bilateral carotid bruits Leg pain, left Vitamin D deficiency Annual physical exam Family History Family History Father No problems noted. Mother Hypertension CHF (congestive heart failure) Sister Mental health disorder Surgical History Surgical History (Updated 09/06/23 @ 10:09 by Zita Zafar MD) H/O vein stripping H/O colonoscopy Social History Social History (Updated 05/26/23 @ 11:39 by Sherry Biggs MA) Housing: House Alcohol intake: current Alcohol intake frequency: a few times a month Patient Tobacco Use Status: Never used Tobacco e-Cigarette/Vaping Use: Never Used Use of substances other than those prescribed or required for medical reasons: No Are you DNR?: No Advance Directives: No Advance Directives Information Provided: Yes Current occupational status: employed Cognitive needs: No Hearing needs: No Vision needs: Yes Meds Allergies Allergy/AdvReac Type Severity Reaction Status Date / Time cortisone AdvReac Hypertensio Verified 09/06/23 09:31 n Home Medications Medication Instructions Recorded Confirmed Last Taken Type cholecalciferol (vitamin D3) 50 50 mcg PO DAILY 06/16/21 09/06/23 Unknown History mcg (2,000 unit) capsule ibuprofen 200 mg tablet 200 mg PO Q6H PRN Pain 06/16/21 09/06/23 Unknown History Exam Height,Weight and Vital Signs: Height 5 ft 4 in Weight 88.904 kg Narrative Narrative: ECHO 2021 grossly nml Assessment and Plan Assessment Anesthesia Assessment: Chart Reviewed Documented by User: Zita Zafar MD 09/06/23 10:14 HPI - Anesthesia Eval Consult details Narrative: 63yo F for EGD, Colonoscopy PMFSH Active Problems Active Problems: All Active Problems (Updated 09/06/23 @ 09:38 by Zita Zafar MD) Left knee pain (Acute) Sciatica (Acute) Hx of colonoscopy (Acute) Varicose veins of right lower extremity with inflammation (Acute) Ankle pain, right (Acute) Venous insufficiency of both lower extremities (Acute) Allergic rhinitis (Acute) TIA (transient ischemic attack) 2 years ago Bilateral carotid bruits (Acute) Knee pain, left (Acute) Vitamin D deficiency (Acute) Annual physical exam (Acute) Increased BMI. Denies UNRULY Abdominal discomfort/ bloating/ GERd Past Medical History Medical History (Updated 09/06/23 @ 09:59 by Zita Zafar MD) Bronchitis Microhematuria SOB (shortness of breath) Flu-like symptoms COVID-19 TIA (transient ischemic attack) Sinusitis Bilateral carotid bruits Leg pain, left Vitamin D deficiency Annual physical exam Family History Family History Father No problems noted. Mother Hypertension CHF (congestive heart failure) Sister Mental health disorder Family history of problems with anesthesia: No Surgical History Surgical History (Updated 09/06/23 @ 10:09 by Zita Zafar MD) H/O vein stripping H/O colonoscopy History of Problems with Anesthesia: No Social History Social History (Updated 05/26/23 @ 11:39 by Sherry Biggs MA) Housing: House Alcohol intake: current Alcohol intake frequency: a few times a month Patient Tobacco Use Status: Never used Tobacco e-Cigarette/Vaping Use: Never Used Use of substances other than those prescribed or required for medical reasons: No Are you DNR?: No Advance Directives: No Advance Directives Information Provided: Yes Current occupational status: employed Cognitive needs: No Hearing needs: No Vision needs: Yes Meds Allergies Allergy/AdvReac Type Severity Reaction Status Date / Time cortisone AdvReac Hypertensio Verified 09/06/23 09:31 n Home Medications Medication Instructions Recorded Confirmed Last Taken Type cholecalciferol (vitamin D3) 50 50 mcg PO DAILY 06/16/21 09/06/23 Unknown History mcg (2,000 unit) capsule ibuprofen 200 mg tablet 200 mg PO Q6H PRN Pain 06/16/21 09/06/23 Unknown History Exam Height,Weight and Vital Signs: Height 5 ft 4 in Weight 88.904 kg Vital Signs Temp Pulse Resp BP Pulse Ox O2 Del Method 09/06/23 09:32 97.5 F 78 15 146/77 H 98 Room Air Airway Mallampati Class: II TM Dist: >3cm Neck ROM: Full Loose/Missing/Broken Teeth: No (Denies broken, loose, missing teeth) Heart: RRR Lungs: CTAB Other: Unable to appreciate carotid bruits Assessment and Plan Assessment Anesthesia Assessment: Anesthesia Plan Discussed and Chart Reviewed Final Anesthetic Review Family History of Problems with Anesthesia: No History of Problems with Anesthesia: No NPO: Yes ASA Class: III Final Preanesthetic Review: No Changes in Pt Med Stat, Meds/Allgs Chart Reviewed, Consent Obtained/Reviewed and Anes Risks/Benef Reviewed Patient Risk: Intermediate Procedure Risk: Low Assessment/Block/Sedation in SS: Assess/Block/Sedation-SS Anesthetic Plan Anesthetic Plan: TIVA Disposition: Standard PACU
--- NOTE | 2023-09-06 09:25 | MHC.SHP ---
Pre-Procedural Eval Section A - 24 Hr Update-Section A only Date of Service: 09/06/23 Section B - Complete if H&P > 30 days Chief Complaint: screening and indigestion with epigastric Details of Present Illness: epigastric discomfort Relevant Family History (Specify if Yes): No Relevant Social History: None Present Medications: see Short Stay Collaborative assessment Medical History: Significant History (Bronchitis Microhematuria SOB (shortness of breath) Flu-like symptoms COVID-19 TIA (transient ischemic attack) Sinusitis Bilateral carotid bruits Leg pain, left Vitamin D deficiency) History of Previous Operations: Relevant previous surgery/procedure and date(s) (H/O colonoscopy) Allergies: Allergies Allergy/AdvReac Type Severity Reaction Status Date / Time No Known Allergies Allergy Verified 06/22/23 10:41 Review of Systems Sugical H&P ROS: Negative: Constitution, Cardiovascular, Respiratory, Neurological, Psychiatric, Hem-Onc, Allergic/Immunologic, Gastrointestinal, Genitourinary, Musculoskeletal, Integumentary, Endocrine and Eyes/Ears/Nose/Throat Exam Surgical H&P Exam: Normal: HEENT, Normal: Heart, Normal: Lungs, Normal: Extremities, Normal: Abdomen, Normal: Skin and Normal: Neurological Plan Diagnosis/Plan: Unchanged I have reviewed the history and physical and performed a pertinent physical examination on my patient. No changes have occurred unless specified. Time Spent With Patient Time: Total time managing care of this patient today ____ minutes.
[2023-09-06 09:32] VITALS: BP 146/77; PULSE 78; RESP 15; TEMP 36.4; O2SAT 98; BMI 34.0
[2023-09-06] MEDS: Lactated Ringers 1,000 ML 100 ML IVCONT (09:47)
--- NOTE | 2023-09-06 10:05 | P.OP_ITS ---
Operative Note Operative Note Date of Service: 09/06/23 Narrative: Operative Information Procedure Description: EGD, Colonoscopy Indication: screening and indigestion, epigastric discomfort Anesthesia: MAC FLEXIBLE TRANSORAL UPPER GASTROINTESTINAL ENDOSCOPY AND COLONOSCOPY PROCEDURE NOTE UPPER ENDOSCOPY Consent: Indications for the procedure and potential complications of bleeding, perforation, reaction to medications and missed diagnosis were discussed with the patient and informed consent was obtained. Instrument: Olympus GIF H 190 J mid size upper endoscope Monitoring: Vital signs and clinical assessment, continuous EKG monitoring, Pulse oximetry, Carbon Dioxide monitoring and blood pressure monitoring were done throughout the procedure. Procedure: The patient was placed in the left lateral decubitis position and pre-procedure medications were administered and a bite block was placed. The endoscope was inserted into the mouth and advanced under direct vision to the third part of duodenum. A careful inspection was made as the upper endoscope was withdrawn including a retroflexed examination of the proximal stomach; Findings and interventions are described below. Findings: Larynx:normal Esophagus: GE junction at 33 cm, diaphragm hiatus at 35 cm, consistent with 2 cm sliding hiatal hernia, esophagitis noted, bx taken from GEJ and distal esophagus Stomach: Patchy erythema and friability in the antrum. Biopsies were obtained. Grade 2 flap valve on retroflexed examination of the cardia. Duodenum: Normal bulb and descending duodenum, bx taken Intervention: Biopsies as noted above COLONOSCOPY Instrument: Olympus variable stiffness pediatric scope 190L Colonoscopy Monitoring: Vital signs and clinical assessment, continuous EKG monitoring, Pulse oximetry, Carbon Dioxide monitoring and blood pressure monitoring were done throughout the procedure. Colon withdrawal time was 10 minutes. Procedure: The patient was placed in the left lateral decubitis position and pre-procedure medications were administered. After a digital rectal examination of the ano-rectum, the video colonoscope was inserted into the rectum and advanced through the colon to the cecum/TI. The colonoscope was slowly withdrawn in a retrograde panoramic fashion and the colon mucosa was carefully examined including a retroflexed view of the rectum. Findings and interventions are described below. Procedure Difficulty: easy Findings: Terminal Ileum-normal Cecum:normal Ascending Colon: normal Transverse Colon - 10 mm sessile polyp removed with cold snare Descending Colon:normal Sigmoid Colon: normal Rectum: Retroflexion with small internal hemorrhoids, grade I Anorectum - normal Colon preparation: Karval Bowel Preparation Scale Right colon; 2 Transverse colon: 3 Left colon; 3 (0 = Unprepared colon segment with mucosa not seen due to solid stool that cannot be cleared. 1 = Portion of mucosa of the colon segment seen, but other areas of the colon segment not well seen due to staining, residual stool and/or opaque liquid. 2 = Minor amount of residual staining, small fragments of stool and/or opaque liquid, but mucosa of colon segment seen well. 3 = Entire mucosa of colon segment seen well with no residual staining, small fragments of stool or opaque liquid) Impression and Post Procedure Diagnosis: Endoscopy Findings: gastritis hiatal hernia esophagitis Colonoscopy Findings: polyp internal hemorrhoids Plan: Await Pathology results Repeat Colonoscopy in 5-7 years due to polyp or earlier if clinically indicated High fiber diet leaflet avoid straining at stool, epsom salts and sitz bath, anusol supps or cream commence PPI, if h pylori pos then treat Above findings were reviewed with the patient and relevant handouts were provided if indicated.
[2023-09-06 10:57] VITALS: BP 108/67; PULSE 81; RESP 16; TEMP 36.2; O2SAT 97
[2023-09-06 11:12] VITALS: BP 107/77; PULSE 88; RESP 16; TEMP 36.2; O2SAT 99
== END 2023-09-06 12:19 | disposition home or self-care (01) ==
PROVIDERS: PCP Internal Medicine; Visit Provider Internal Medicine Gastroenterology
PROC: 0DJ08ZZ Inspection of Upper Intestinal Tract, Via Natural or Artificial Opening Endoscopic (ICD-10-PCS; CPT 43235; principal; 2023-09-06 11:40)
DX: K21.00 Gastro-esophageal reflux disease with esophagitis, without bleeding (principal); K29.60 Other gastritis without bleeding; K44.9 Diaphragmatic hernia without obstruction or gangrene; Z12.11 Encounter for screening for malignant neoplasm of colon; D12.3 Benign neoplasm of transverse colon; K64.0 First degree hemorrhoids; Z86.73 Personal history of transient ischemic attack (TIA), and cerebral infarction without residual deficits; Z79.899 Other long term (current) drug therapy
CPT/HCPCS: 43239; 45385; 88305; 88313; 88342; J1596; J2704

== ENCOUNTER → 2023-09-06 08:45 | Outpatient (BNV) | payer OTHER, SELFPAY | PROVIDERS: PCP Internal Medicine; Visit Provider Internal Medicine Gastroenterology | DX: Z12.11 Encounter for screening for malignant neoplasm of colon (principal); D12.3 Benign neoplasm of transverse colon; K64.8 Other hemorrhoids; K20.90 Esophagitis, unspecified without bleeding; K29.70 Gastritis, unspecified, without bleeding | CPT/HCPCS: 43239; 45385 ==

== ENCOUNTER 2023-09-21 11:18 | Outpatient (AMB) | payer OTHER, SELFPAY ==
--- NOTE | 2023-09-21 11:23 | MHC.PC.OV ---
Vital Signs 09/21/23 11:32 Height 5 ft 4 in Weight 196 lb BMI 33.6 BP 122/80 Blood Pressure Location Lt brachial Position Sitting Pulse 83 Pulse Source Pulse Oximeter Pulse Oximetry (%) 95 Oxygen Delivery Method Room Air Intake Visit Reasons: Colonoscopy/Endoscopy F/U Allergies cortisone Adverse Reaction (Verified 09/06/23 09:31) Hypertension Tobacco use date assessed: 09/21/23 Fall risk assessment: No Falls in past year Last assessed Fall Risk: 09/21/23 Dental Screening Dental Screen Date: 09/21/23 Did you have a dental visit in the last 12 months?: Yes Did you have a dental problem in the last 6 months where you did not have access to dental care?: No Was dental information given to patient?: Patient has dentist HPI Colonoscopy/Endoscopy F/U HPI Details Pt presents for EGD and colonoscopy c/w Barretts esophagus but no dysplasia and 1 polyp adenoma. Patient was prescribed pantoprazole but developed diarrhea after 1 tablet. She has been following in the GERD diet. Patient complains of chronic lower extremity edema and had evaluation with vascular surgeon who did not recommend surgical treatment. Pt c/o increased stress because of son who is in difficult relationship and has 2 yr son. [facility] Medical History (Updated 09/21/23 @ 12:53 by Heike Gomez MD) Bronchitis Microhematuria SOB (shortness of breath) Flu-like symptoms COVID-19 TIA (transient ischemic attack) Sinusitis Bilateral carotid bruits Leg pain, left Vitamin D deficiency Annual physical exam Surgical History (Updated 09/21/23 @ 12:44 by Heike Gomez MD) H/O vein stripping H/O colonoscopy Family History Father No problems noted. Mother Hypertension CHF (congestive heart failure) Sister Mental health disorder Social History Housing: House Alcohol intake: current Alcohol intake frequency: a few times a month Patient Tobacco Use Status: Never used Tobacco e-Cigarette/Vaping Use: Never Used Current occupational status: employed Cognitive needs: No Hearing needs: No Vision needs: Yes Questionnaire PHQ-9 Over the last 2 weeks, how often have you been bothered by any of the following problems? 1. Little interest or pleasure in doing things: not at all 2. Feeling down, depressed, or hopeless: not at all 3. Trouble falling or staying asleep, or sleeping too much: several days 4. Feeling tired or having little energy: not at all 5. Poor appetite or overeating: several days 6. Feeling bad about yourself - or that you are a failure or have let yourself or your family down: not at all 7. Trouble concentrating on things, such as reading the newspaper or watching television: not at all 8. Moving or speaking so slowly that other people could have noticed. Or the opposite - being so fidgety or restless that you have been moving around a lot more than usual: not at all 9. Thoughts that you would be better off or of hurting yourself in some way: not at all Total score: 2 Depression Screening Interpretation: Negative Depression Screening Done: Yes Source: Developed by Drs. Everardo Ferrara, Jenn Jaime, Luis Fernando Sawant and colleagues, with an educational sahra from [employer]. Thrive Questionnaire Date Thrive assessed: 09/21/23 I am a: Patient What is your living situation today?: I have a steady place to live Within the past 12 months, did the food you bought not last and you didn't have the money to get more?: Never true Within the past 12 months, did you worry whether your food would run out before you got money to buy more?: Never true Do you have trouble paying for medicines?: No Do you have trouble getting transportation to medical appointments?: No Do you have trouble paying your heating and electricity bill?: No Do you have trouble taking care of your child, family member or friend?: No Do you have trouble with day-to-day activities such as bathing, preparing meals, shopping, managing finances, etc.?: No Are you currently unemployed and looking for a job?: No Are you interested in more education?: No Please select the resources that you would like help with: None Currently or been in a relationship where the following occur: no concerns reported THRIVE Score: 0 AUDIT C Alcohol Use Questionnaire (AUDIT-C) 1. How often do you have a drink containing alcohol?: Never 3. How often do you have six or more drinks on one occasion?: Never Total Score: 0 JIGAR-7 AMB Questionnaire JIGAR-7 Date JIGAR - 7 assessed: 09/21/23 Feeling nervous, anxious, or on edge: 0 = Not at all Not being able to stop or control worryin = Not at all Worrying too much about different things: 0 = Not at all Trouble relaxin = Not at all Being so restless that it is hard to sit still: 0 = Not at all Becoming easily annoyed or irritable: 0 = Not at all Feeling afraid as if something awful might happen: 0 = Not at all Total JIGAR-7 score (0-4 normal; 5-9 mild; 10-14 moderate; 15-21 severe): 0 Source: Developed by Drs. Everardo Ferrara, Jenn Jaime, Luis Fernando Sawant and colleagues, with an educational sahra from [employer]. Review of Systems Const All systems reviewed & are unremarkable except as noted in HPI and below Reports no additional complaints Eyes Reports no additional complaints ENT Reports no additional complaints Card Reports no additional complaints Resp Reports no additional complaints GI Reports no additional complaints Physical exam (Primary Care) Vital Signs: Last Vital Signs Pulse 83 09/21/23 11:32 BP 122/80 09/21/23 11:32 Pulse Ox 95 09/21/23 11:32 Oxygen Delivery Method Room Air 09/21/23 11:32 BMI result Body Mass Index 33.6 Tobacco/Smoking Status: Tobacco use Status Tobacco use date assessed 09/21/23 09/21/23 11:38 Patient Tobacco Use Status Never used Tobacco 09/21/23 11:38 e-Cigarette/Vaping Use Never Used 09/21/23 11:24 PHQ-9: PHQ-9 Score PHQ-9: Total score 2 09/21/23 12:15 Depression Screening Interpretation: Negative Thrive Assessment: Date of Thrive Assessment Date Thrive assessed 09/21/23 09/21/23 11:44 Currently or been in a relationship where the following occur: no concerns reported Const General: no acute distress HENMT Head: Yes normal to inspection Face and sinus: Yes normal facial exam Neck Neck: Yes supple Resp Effort & Inspection: normal respiratory effort Auscultation: clear to auscultation bilaterally Cardio Rhythm: regular rhythm Heart sounds: S1 normal heart sound present and S2 normal heart sound present GI Inspection: Yes normal to inspection Palpation (GI): Soft to palpation Percussion: Yes normal to percussion Auscultation: normal bowel sounds Extrem Other: 2+ nonpitting edema bilaterally Assessment and Plan Assessment & Plan (1) TINEO (dyspnea on exertion): Code(s): R06.09 - Other forms of dyspnea Plan: Check echo (2) Vitamin D deficiency: Code(s): E55.9 - Vitamin D deficiency, unspecified Plan: Check vitamin-D level patient has been taking 2000 units a day (3) Greene esophagus: Comment: EGD 09/17 biopsy consistent with reactive gastropathy for lamina propria hemorrhage, GI junction squamocolumnar mucosa with hyperplasia but no dysplasia, intolerant to pantoprazole, omeprazole prescribed 09/17 Code(s): K22.70 - Greene's esophagus without dysplasia Plan: Omeprazole is prescribed patient will follow-up with GI (4) Anxiety: Code(s): F41.9 - Anxiety disorder, unspecified Plan: Stress management and counseling were recommended. Sertraline 25 mg daily is prescribed and patient will follow-up in 2 months Orders: Orders CA echo transthoracic complete Today E55.9 - Vitamin D deficiency, unspecified, R06.09 - Other forms of dyspnea Comprehensive Met. Panel Today E55.9 - Vitamin D deficiency, unspecified, R06.09 - Other forms of dyspnea Vitamin D 25-OH Total Today E55.9 - Vitamin D deficiency, unspecified, R06.09 - Other forms of dyspnea Medications: New sertraline (Zoloft) 25 mg PO DAILY 90 tabs 0RF omeprazole 20 mg PO DAILY 90 caps 0RF Coding Level of Care Code Est Pt Level 4 (60123) Diagnoses TINEO (dyspnea on exertion) R06.09 Vitamin D deficiency E55.9 Greene esophagus K22.70 Anxiety F41.9
[2023-09-21 11:32] VITALS: BP 122/80; PULSE 83; O2SAT 95; BMI 33.6
== END 2023-09-21 12:54 | disposition home or self-care (01) ==
PROVIDERS: PCP Internal Medicine; Visit Provider Internal Medicine
DX: R06.09 Other forms of dyspnea (principal); E55.9 Vitamin D deficiency, unspecified; K22.70 Barrett's esophagus without dysplasia; F41.9 Anxiety disorder, unspecified
CPT/HCPCS: 99214

== ENCOUNTER 2023-09-21 12:50 | Outpatient (REF) | payer OTHER, SELFPAY ==
[2023-09-21 18:08] LABS: Alanine Aminotransferase 32 U/L (0-31); Albumin Level 4.2 g/dL (3.5-5.0); Alkaline Phosphatase 68 U/L (39-117); Anion Gap 12 (12-20); Aspartate Amino Transferase 27 U/L (5-31); Bilirubin Total 0.3 mg/dL (0.0-1.0); Blood Urea Nitrogen 18 mg/dL (9-16); Calcium 9.7 mg/dL (8.4-10.2); Carbon Dioxide 26 mmol/L (22-29); Chloride 107 mmol/L (96-108); Estimated Glomerular Filt Rate > 60; Glucose Random 88 mg/dL (60-115); Potassium 4.5 mmol/L (3.3-5.1); Sodium 140 mmol/L (135-145); Total Protein 7.4 g/dL (6.5-8.0); Vitamin D 25-OH Total 51.9 ng/mL (>30)
== END 2023-09-21 12:51 | disposition home or self-care (01) ==
LOC: HO.HMGCLDS 12:50
PROVIDERS: PCP Internal Medicine; Visit Provider Internal Medicine
DX: R06.09 Other forms of dyspnea (principal); E55.9 Vitamin D deficiency, unspecified
CPT/HCPCS: 36415; 80053; 82306

== ENCOUNTER 2023-10-07 12:06 | Outpatient (AMB) | payer OTHER, SELFPAY ==
[2023-10-07 12:10] VITALS: BP 134/64; PULSE 71; BMI 33.6
--- NOTE | 2023-10-07 12:10 | A.OFFVIS_ITS ---
Intake Vital Signs 10/07/23 12:10 Height 5 ft 4 in Weight 196 lb BMI 33.6 BP 134/64 Blood Pressure Location Lt brachial Position Sitting Pulse 71 Intake Visit Reasons: follow up from procedure Intake Note: Patient follow up for Colonoscopy results. Patient cc: acid reflex and denies any other GI issues. 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 Patient will do Sitz baths. Try to use Epsom salts. Patient is unable to take hydrocortisone. Patient had a reaction and we will not give her script. Can try [id number] and Calmoseptine. Wipe with wet wipes. Patient will call surgical schedule hours weekly to see if any spots open for colonoscopy. I will see her after the procedure. Patient will call our office if she will have any GI concerning symptoms. She is agreeable to this plan and verbalizes understanding of instructions. She was given the opportunity to ask questions and all questions answered. ? UPPER ENDOSCOPY AND COLONOSCOPY Findings: Larynx:normal Esophagus: GE junction at 33 cm, diaphragm hiatus at 35 cm, consistent with 2 cm sliding hiatal hernia, esophagitis noted, bx taken from GEJ and distal esophagus Stomach: Patchy erythema and friability in the antrum. Biopsies were obtained. Grade 2 flap valve on retroflexed examination of the cardia. Duodenum: Normal bulb and descending duodenum, bx taken Intervention: Biopsies as noted above COLONOSCOPY Instrument: Olympus variable stiffness pediatric scope 190L Colonoscopy Monitoring: Vital signs and clinical assessment, continuous EKG monitoring, Pulse oximetry, Carbon Dioxide monitoring and blood pressure monitoring were done throughout the procedure. Colon withdrawal time was 10 minutes. Procedure: The patient was placed in the left lateral decubitis position and pre-procedure medications were administered. After a digital rectal examination of the ano-rectum, the video colonoscope was inserted into the rectum and advanced through the colon to the cecum/TI. The colonoscope was slowly withdrawn in a retrograde panoramic fashion and the colon mucosa was carefully examined including a retroflexed view of the rectum. Findings and interventions are described below. Procedure Difficulty: easy Findings: Terminal Ileum-normal Cecum:normal Ascending Colon: normal Transverse Colon - 10 mm sessile polyp removed with cold snare Descending Colon:normal Sigmoid Colon: normal Rectum: Retroflexion with small internal hemorrhoids, grade I Anorectum - normal Colon preparation: [place] Bowel Preparation Scale Right colon; 2 Transverse colon: 3 Left colon; 3 (0 = Unprepared colon segment with mucos a not seen due to solid stool that cannot be cleared. 1 = Portion of mucosa of the colon segme nt seen, but other areas of the colon segment not well seen due to staining, residual stool and/or opaque liquid. 2 = Minor amount of residual staining, s mall fragments of stool and/or opaque l iquid, but mucosa of colon segment seen well. 3 = Entire mucosa of colon segment seen well with no residual staining, small fragments of stool or opaque liquid) Impression and Post Procedure Diagnosis: Endoscopy Findings: gastritis hiatal hernia esophagitis Colonoscopy Findings: polyp internal hemorrhoids Plan: Await Pathology results Repeat Colonoscopy in 5-7 years due to polyp or earlier if clinically indicated High fiber diet leaflet avoid straining at stool, epsom salts and sitz bath, anusol supps or cream commence PPI, if h pylori pos then treat PATHOLOGY RESULTS: Diagnosis A. Colon, transverse, polyp: Tubular adenoma; negative for high-grade dysplasia and carcinoma. B. Duodenum, biopsy: Duodenal mucosa with preserved villi and no specific change. C. Stomach, biopsy: Reactive gastropathy with congestion and focal lamina propria hemorrhage, and focal minimal chronic inactive inflammation; negative for H pylori, intestinal metaplasia and dysplasia, and fragment of duodenal mucosa (consistent with contaminant). D. Gastroesophageal junction, biopsy: Squamocolumnar mucosa with hyperplasia and mild chronic inflammation, and focal intestinal metaplasia; negative for dysplasia (see comment). E. Esophagus, distal, biopsy: Squamous mucosa with mild hyperplasia and spongiosis compatible with reflux; no columnar mucosa present. Comment: (D): These findings are consistent with Greene's esophagus if the biopsies were taken from above the anatomic gastroesophageal junction. Clinical and endoscopic correlation is advised TODAY'S VISIT: Patient is here today for follow-up and to discuss upper endoscopy and colonoscopy. Patient denies any ill effects from the prep, anesthesia or procedure itself. Upper endoscopy showed possible Barretts and reactive gastropathy with congestion and focal lamina propria hemorrhage. Patient denies drinking alcohol or smoking. Not really taking any NSAIDs. Patient reports that she started changing her diet, avoiding spicy food and anything that would irritate her stomach. Patient reports that she is currently taking pantoprazole even though she had loose stools after taking it. Patient is taking 1 hour before she eats her breakfast. Patient however does report that occasionally in the morning she will wake up with acid reflux and sometimes will have acid reflux during the night. Patient is not eating late at night. Patient does not snack late at night. Patient denies any nausea or vomiting. Patient is moving her bowels without any issues. Denies melena, hematochezia, unintentional weight loss or ribbon like stools. One tubular adenoma found in transverse colon without high-grade dysplasia or carcinoma. Colonoscopy will be repeated in 5 years, sooner if clinically necessary. Patient moving her bowels without any issues. Now that she changed her diet, eating more vegetables patient is able to move her bowels. No longer trouble with blood after bowel movements. Most likely patient had tiny fissure that healed after changing her diet [facility] Medical History (Updated 10/07/23 @ 20:43 by Bobbi Victoria, [facility]) Reactive gastropathy Tubular adenoma of colon Bronchitis Microhematuria SOB (shortness of breath) Flu-like symptoms COVID-19 TIA (transient ischemic attack) Sinusitis Bilateral carotid bruits Leg pain, left Vitamin D deficiency Annual physical exam Surgical History History of esophagogastroduodenoscopy (EGD) H/O vein stripping H/O colonoscopy Family History Father No problems noted. Mother Hypertension CHF (congestive heart failure) Sister Mental health disorder Social History Housing: House Alcohol intake: current Alcohol intake frequency: a few times a month Patient Tobacco Use Status: Never used Tobacco e-Cigarette/Vaping Use: Never Used Current occupational status: employed Cognitive needs: No Hearing needs: No Vision needs: Yes Review of Systems Const Denies weight gain and Denies weight loss ENT Reports no additional complaints, Denies dysphagia and Denies odynophagia Card Reports no additional complaints Resp Reports no additional complaints GI Denies abdominal pain, Denies belching, Denies melena, Denies bloating, Denies change in bowel habits, Denies dysphagia, Denies excessive flatus, Denies dyspepsia, Denies heartburn, Denies diarrhea, Denies loose stools, Denies nausea, Denies odynophagia and Denies vomiting Musc Reports no additional complaints Neuro Reports no additional complaints Psych Reports no additional complaints Endo Reports no additional complaints Physical Exam Vital Signs: Last Vital Signs Pulse 71 10/07/23 12:10 BP 134/64 10/07/23 12:10 BMI result Body Mass Index 33.6 Const General: healthy appearing, no acute distress and well developed Nutritional Appearance: obese Orientation/consciousness: patient oriented x3 Resp Effort & Inspection: normal respiratory effort, able to speak in complete sentences, no tracheal deviation and symmetric chest movement Auscultation: clear to auscultation bilaterally Cardio Rate: regular rate GI Inspection: Yes normal to inspection, No distended and Yes obesity Palpation (GI): Soft to palpation, not firm, nontender and No hepatosplenomegaly present Auscultation: normal bowel sounds General: Yes no CVA tenderness Back/Spine/Pelvis Back: no CVA tenderness Skin General skin exam: elasticity normal, turgor normal and dry skin Neuro General: patient oriented x3 Psych Appearance: grossly normal Mental Status: mental status grossly normal Assessment & Plan Assessment & Plan (1) Greene esophagus: Comment: EGD 09/17 biopsy consistent with reactive gastropathy for lamina propria hemorrhage, GI junction squamocolumnar mucosa with hyperplasia but no dysplasia, intolerant to pantoprazole, omeprazole prescribed 09/17 Code(s): K22.70 - Greene's esophagus without dysplasia Qualifiers: Greene's esophagus type: without dysplasia Qualified Code(s): K22.70 - Greene's esophagus without dysplasia (2) Tubular adenoma of colon: Code(s): D12.6 - Benign neoplasm of colon, unspecified (3) Reactive gastropathy: Code(s): K31.89 - Other diseases of stomach and duodenum (4) GERD (gastroesophageal reflux disease): Code(s): K21.9 - Gastro-esophageal reflux disease without esophagitis Qualifiers: Esophagitis presence: with esophagitis Esophagitis bleeding: without hemorrhage Qualified Code(s): K21.00 - Gastro-esophageal reflux disease with esophagitis, without bleeding Plan Patient will continue pantoprazole every morning half an hour before breakfast. The importance of avoiding dietary triggers stressed with patient. 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 Patient should have upper endoscopy repeated next year, sooner if patient will become more sympt omatic. Currently patient is tolerating pantoprazole well. Stopped taking omeprazole. Dose not strong enough. Patient will also take famotidine at bedtime. However her symptoms will continue patient can be switched to sucralfate. She is to call our office if she will have any GI concerning symptoms. Due to patient's insurance she will follow-up in this office next year, however if the need is to see GI specialist sooner patient will call the office and referral to [facility] or [facility] can be sent. Continue high-fiber diet. Patient was encouraged to increase fluid intake and activity to promote better bowel motility. Patient is agreeable to current plan of care and verbalizes understanding of instructions. She was given the opportunity to ask questions and all questions answered. Thank you for allowing me to participate in her care Medications: New pantoprazole take one tablet half an hour before breakfast 40 mg PO DAILY 90 tabs 4RF K21.9 - Gastro-esophageal reflux disease without esophagitis famotidine 40 mg PO BEDTIME 90 tabs 4RF K21.9 - Gastro-esophageal reflux disease without esophagitis Discontinued omeprazole Discontinued Reason: Doctor's Order 20 mg PO DAILY 90 caps 0RF Coding Level of Care Code Est Pt Level 4 (36057) Diagnoses Greene's esophagus without dysplasia K22.70 Greene's esophagus type: without dysplasia Tubular adenoma of colon D12.6 Reactive gastropathy K31.89 Gastroesophageal reflux disease with esophagitis without hemorrhage K21.00 Esophagitis presence: with esophagitis Esophagitis bleeding: without hemorrhage Time Spent (min) 35 Comment 20 minutes spent with patient and additional 15 minutes spent reviewing her records
== END 2023-10-07 12:55 | disposition home or self-care (01) ==
PROVIDERS: PCP Internal Medicine; Visit Provider Nurse Practitioner Family
DX: K22.70 Barrett's esophagus without dysplasia (principal); D12.6 Benign neoplasm of colon, unspecified; K31.89 Other diseases of stomach and duodenum; K21.00 Gastro-esophageal reflux disease with esophagitis, without bleeding
CPT/HCPCS: 99214

== ENCOUNTER → 2023-10-07 12:06 | Outpatient (BNVA) | payer OTHER, SELFPAY | PROVIDERS: PCP Internal Medicine; Visit Provider Nurse Practitioner Family ==

== ENCOUNTER 2023-12-01 11:02 | Outpatient (AMB) | payer OTHER, SELFPAY ==
[2023-12-01 11:07] VITALS: BP 110/66; PULSE 80; O2SAT 97; BMI 33.5
--- NOTE | 2023-12-01 11:07 | A.OFFPC_ITS ---
Vital Signs 12/01/23 11:07 Height 5 ft 4 in Weight 195 lb BMI 33.5 BP 110/66 Blood Pressure Location Rt brachial Position Sitting Pulse 80 Pulse Source Pulse Oximeter Pulse Oximetry (%) 97 Oxygen Delivery Method Room Air Intake Visit Reasons: 2 month follow up Intake Note: Pt is here today for 2 months follow up visit. Allergies cortisone Adverse Reaction (Verified 12/01/23 11:07) Hypertension Medication List - Last Reconciled 12/01/23 by Heike Gomez MD Advair HFA 115-21 mcg/actuation (fluticasone propion-salmeterol) 2 puffs inhalation BID NS albuterol sulfate 90 mcg/actuation 1 puff PO Q4H PRN cholecalciferol (vitamin D3) 50 mcg PO DAILY clotrimazole 1% 1 appl topical BID comp.stocking,thigh,long,large 20-30 mmHg compr.stocking,knee,long,large 20-30 mmHg famotidine 40 mg PO BEDTIME ibuprofen 200 mg PO Q6H PRN pantoprazole 40 mg PO DAILY sertraline (Zoloft) 25 mg PO DAILY Tobacco use date assessed: 09/21/23 Dental Screening Dental Screen Date: 09/21/23 HPI 2 month follow up HPI Details Patient presents for the follow-up of esophagitis and gastritis. She has been taking PPI and following anti GERD diet. She was advised not to take NSAIDs for her chronic knee pain. Anxiety is stable. Patient did not take Zoloft but reports feeling better. She denies depression insomnia and is not interested in counseling. For chronic asthma patient has stopped using Advair and has been using albuterol up to twice a week with good relief PFSH Medical History (Updated 12/01/23 @ 12:26 by Heike Gomez MD) Reactive gastropathy Tubular adenoma of colon Bronchitis Microhematuria SOB (shortness of breath) Flu-like symptoms COVID-19 TIA (transient ischemic attack) Sinusitis Bilateral carotid bruits Leg pain, left Vitamin D deficiency Annual physical exam Surgical History History of esophagogastroduodenoscopy (EGD) H/O vein stripping H/O colonoscopy Family History Father No problems noted. Mother Hypertension CHF (congestive heart failure) Sister Mental health disorder Social History Housing: House Alcohol intake: current Alcohol intake frequency: a few times a month Patient Tobacco Use Status: Never used Tobacco e-Cigarette/Vaping Use: Never Used Current occupational status: employed Cognitive needs: No Hearing needs: No Vision needs: Yes Questionnaire Thrive Questionnaire Date Thrive assessed: 09/21/23 JIGAR-7 AMB Questionnaire JIGAR-7 Date JIGAR - 7 assessed: 09/21/23 Source: Developed by Drs. Everardo Ferrara, Jenn Jaime, Luis Fernando Sawant and colleagues, with an educational sahra from [employer]. Review of Systems Const All systems reviewed & are unremarkable except as noted in HPI and below ENT Reports no additional complaints Card Reports no additional complaints Resp Reports no additional complaints GI Reports no additional complaints Physical exam (Primary Care) Vital Signs: Last Vital Signs Pulse 80 12/01/23 11:07 BP 110/66 12/01/23 11:07 Pulse Ox 97 12/01/23 11:07 Oxygen Delivery Method Room Air 12/01/23 11:07 BMI result Body Mass Index 33.5 Tobacco/Smoking Status: Tobacco use Status Tobacco use date assessed 09/21/23 12/01/23 11:17 Patient Tobacco Use Status Never used Tobacco 12/01/23 11:17 e-Cigarette/Vaping Use Never Used 12/01/23 11:17 Thrive Assessment: Date of Thrive Assessment Date Thrive assessed 09/21/23 12/01/23 11:17 Const General: no acute distress HENMT Head: Yes normal to inspection Mouth: Normal oral and palatal mucosa present Eyes General: appearance normal, both eyes and all related structures Neck Neck: Yes supple Resp Effort & Inspection: normal respiratory effort Auscultation: clear to auscultation bilaterally Cardio Rhythm: regular rhythm Heart sounds: S1 normal heart sound present and S2 normal heart sound present GI Inspection: Yes normal to inspection Palpation (GI): Soft to palpation Percussion: Yes normal to percussion Auscultation: normal bowel sounds Assessment and Plan Assessment & Plan (1) Reactive gastropathy: Code(s): K31.89 - Other diseases of stomach and duodenum Plan: Continue PPI anti GERD diet and avoiding NSAIDs. Patient was advised to have a repeat EGD in 1 year but because of insurance change she can not have it at [facility]. 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 for lamina propria hemorrhage, GI junction squamocolumnar mucosa with hyperplasia but no dysplasia, intolerant to pantoprazole, omeprazole prescribed 09/17 Code(s): K22.70 - Greene's esophagus without dysplasia Qualifiers: Greene's esophagus type: without dysplasia Qualified Code(s): K22.70 - Greene's esophagus without dysplasia Plan: Continue PPI, follow-up with GI (4) Asthma: Comment: Mild Code(s): J45.909 - Unspecified asthma, uncomplicated Plan: Obtain PFT (5) Leg cramps: Code(s): R25.2 - Cramp and spasm (6) Annual physical exam: Code(s): Z00.00 - Encounter for general adult medical examination without abnormal findings Plan: Return for physical in April (7) Vitamin D deficiency: Code(s): E55.9 - Vitamin D deficiency, unspecified Orders: Orders PFT pulmonary function test Today J45.909 - Unspecified asthma, uncomplicated Complete Blood Count Auto Diff 5 Months E55.9 - Vitamin D deficiency, unspecified, Z00.00 - Encounter for general adult medical examination without abnormal findings TSH reflex Free T4 5 Months E55.9 - Vitamin D deficiency, unspecified, Z00.00 - Encounter for general adult medical examination without abnormal findings Vitamin D 25-OH Total 5 Months E55.9 - Vitamin D deficiency, unspecified, Z00.00 - Encounter for general adult medical examination without abnormal findings Magnesium Today R25.2 - Cramp and spasm Comprehensive [place]sey. Panel Fast 5 Months E55.9 - Vitamin D deficiency, unspecified, Z00.00 - Encounter for general adult medical examination without abnormal findings Lipid Panel 5 Months E55.9 - Vitamin D deficiency, unspecified, Z00.00 - Encounter for general adult medical examination without abnormal findings Referrals Gastroenterology Referral D12.6 - Benign neoplasm of colon, unspecified, K22.70 - Greene's esophagus without dysplasia, K31.89 - Other diseases of stomach and duodenum Medications: New clotrimazole 1% 1 appl topical BID 45 grams 4RF Discontinued sertraline (Zoloft) Discontinued Reason: Doctor's Order 25 mg PO DAILY 90 tabs 0RF famotidine Discontinued Reason: Doctor's Order 40 mg PO BEDTIME 90 tabs 4RF K21.9 - Gastro-esophageal reflux disease without esophagitis Coding Level of Care Code Est Pt Level 4 (35556) Diagnoses Reactive gastropathy K31.89 Tubular adenoma of colon D12.6 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
== END 2023-12-01 15:17 | disposition home or self-care (01) ==
PROVIDERS: PCP Internal Medicine; Visit Provider Internal Medicine
DX: K31.89 Other diseases of stomach and duodenum (principal); D12.6 Benign neoplasm of colon, unspecified; K22.70 Barrett's esophagus without dysplasia; J45.909 Unspecified asthma, uncomplicated; R25.2 Cramp and spasm; Z00.00 Encounter for general adult medical examination without abnormal findings; E55.9 Vitamin D deficiency, unspecified
CPT/HCPCS: 99214

== ENCOUNTER 2023-12-01 12:06 | Outpatient (REF) | payer OTHER, SELFPAY | END 2023-12-01 12:07 | disposition home or self-care (01) | LOC: HO.HMGCLDS 12:06 | PROVIDERS: PCP Internal Medicine; Visit Provider Internal Medicine | DX: R25.2 Cramp and spasm (principal) | CPT/HCPCS: 36415; 83735 ==

== ENCOUNTER 2024-05-08 08:38 | Outpatient (AMB) | payer OTHER, SELFPAY ==
--- NOTE | 2024-05-08 08:39 | A.OFFPC_ITS ---
Vital Signs 05/08/24 08:40 Height 5 ft 4 in Weight 194 lb BMI 33.3 BP 118/76 Blood Pressure Location Lt brachial Position Sitting Pulse 61 Pulse Source Pulse Oximeter Pulse Oximetry (%) 99 Oxygen Delivery Method Room Air Intake Visit Reasons: Annual PE Intake Note: Pt is here today for PE. Pt states that her grandchild was dx with mono. Pt states that she has swollen tonsils. Allergies cortisone Adverse Reaction (Verified 05/08/24 08:43) Hypertension Medication List - Last Reconciled 05/08/24 by Heike Gomez MD Advair HFA 115-21 mcg/actuation (fluticasone propion-salmeterol) 2 puffs inhalation BID NS albuterol sulfate 90 mcg/actuation 1 puff PO Q4H PRN cholecalciferol (vitamin D3) 50 mcg PO DAILY clotrimazole 1% 1 appl topical BID comp.stocking,thigh,long,large 20-30 mmHg compr.stocking,knee,long,large 20-30 mmHg pantoprazole 40 mg PO DAILY Tobacco use date assessed: 05/08/24 Fall risk assessment: No Falls in past year Last assessed Fall Risk: 05/08/24 Dental Screening Dental Screen Date: 09/21/23 HPI Annual PE HPI Details Pt presents for PE. PFSH Medical History (Updated 05/08/24 @ 09:03 by Heike Gomez MD) Reactive gastropathy Tubular adenoma of colon Bronchitis Microhematuria SOB (shortness of breath) Flu-like symptoms COVID-19 TIA (transient ischemic attack) Sinusitis Bilateral carotid bruits Leg pain, left Vitamin D deficiency Annual physical exam Surgical History (Updated 05/08/24 @ 09:03 by Heike Gomez MD) History of esophagogastroduodenoscopy (EGD) H/O vein stripping H/O colonoscopy Family History Father No problems noted. Mother Hypertension CHF (congestive heart failure) Sister Mental health disorder Social History Housing: House Alcohol intake: current Alcohol intake frequency: a few times a month Patient Tobacco Use Status: Never used Tobacco e-Cigarette/Vaping Use: Never Used service: No Current occupational status: employed Cognitive needs: No Hearing needs: No Vision needs: Yes Questionnaire PHQ-9 Over the last 2 weeks, how often have you been bothered by any of the following problems? 1. Little interest or pleasure in doing things: not at all 2. Feeling down, depressed, or hopeless: not at all 3. Trouble falling or staying asleep, or sleeping too much: not at all 4. Feeling tired or having little energy: not at all 5. Poor appetite or overeating: not at all 6. Feeling bad about yourself - or that you are a failure or have let yourself or your family down: not at all 7. Trouble concentrating on things, such as reading the newspaper or watching television: not at all 8. Moving or speaking so slowly that other people could have noticed. Or the opposite - being so fidgety or restless that you have been moving around a lot more than usual: not at all 9. Thoughts that you would be better off or of hurting yourself in some way: not at all Total score: 0 Depression Screening Interpretation: Negative Depression Screening Done: Yes 71388 - PHQ-9 Billing: Yes Source: Developed by Drs. Everardo Ferrara, Jenn Jaime, Luis Fernando Sawant and colleagues, with an educational sahra from [facility]. Thrive Questionnaire Date Thrive assessed: 05/08/24 I am a: Patient What is your living situation today?: I have a steady place to live Within the past 12 months, did the food you bought not last and you didn't have the money to get more?: Often true Within the past 12 months, did you worry whether your food would run out before you got money to buy more?: Never true Do you have trouble paying for medicines?: No Do you have trouble getting transportation to medical appointments?: No Do you have trouble paying your heating and electricity bill?: No Do you have trouble taking care of your child, family member or friend?: No Do you have trouble with day-to-day activities such as bathing, preparing meals, shopping, managing finances, etc.?: No Are you currently unemployed and looking for a job?: No Are you interested in more education?: No Please select the resources that you would like help with: None Currently or been in a relationship where the following occur: No concerns reported THRIVE Score: 1 AUDIT C Alcohol Use Questionnaire (AUDIT-C) 1. How often do you have a drink containing alcohol?: Never Total Score: 0 JIGAR-7 AMB Questionnaire JIGAR-7 Date JIGAR - 7 assessed: 05/08/24 Feeling nervous, anxious, or on edge: 0 = Not at all Not being able to stop or control worryin = More than half the days Worrying too much about different things: 2 = More than half the days Trouble relaxin = More than half the days Being so restless that it is hard to sit still: 0 = Not at all Becoming easily annoyed or irritable: 0 = Not at all Feeling afraid as if something awful might happen: 0 = Not at all Total JIGAR-7 score (0-4 normal; 5-9 mild; 10-14 moderate; 15-21 severe): 6 Source: Developed by Drs. Everardo Ferrara, Jenn Jaime, Luis Fernando Sawant and colleagues, with an educational sahra from [facility]. JIGAR-7 Assessment Billing JIGAR-7 Assessment Tool: JIGAR-7 Assessment 12125 Review of Systems Const All systems reviewed & are unremarkable except as noted in HPI and below Eyes Reports no additional complaints ENT Reports no additional complaints Card Reports no additional complaints Resp Reports no additional complaints GI Reports no additional complaints Reports no additional complaints Physical exam (Primary Care) Vital Signs: Last Vital Signs Pulse 61 05/08/24 08:40 BP 118/76 05/08/24 08:40 Pulse Ox 99 05/08/24 08:40 Oxygen Delivery Method Room Air 05/08/24 08:40 BMI result Body Mass Index 33.3 Tobacco/Smoking Status: Tobacco use Status Tobacco use date assessed 05/08/24 05/08/24 08:47 Patient Tobacco Use Status Never used Tobacco 05/08/24 08:42 e-Cigarette/Vaping Use Never Used 05/08/24 08:42 PHQ-9: PHQ-9 Score PHQ-9: Total score 0 05/08/24 08:50 Depression Screening Interpretation: Negative Thrive Assessment: Date of Thrive Assessment Date Thrive assessed 05/08/24 05/08/24 08:47 Currently or been in a relationship where the following occur: No concerns reported Const General: no acute distress HENMT Head: Yes normal to inspection Face and sinus: Yes normal facial exam Eyes General: appearance normal, both eyes and all related structures Neck Neck: Yes no lymphadenopathy and Yes supple Resp Effort & Inspection: normal respiratory effort Auscultation: clear to auscultation bilaterally Cardio Rhythm: regular rhythm Heart sounds: S1 normal heart sound present and S2 normal heart sound present GI Inspection: Yes normal to inspection Palpation (GI): Soft to palpation Percussion: Yes normal to percussion Auscultation: normal bowel sounds Coding Level of Care Code Est Pt Prev Care 40-64y(36000) Diagnoses Annual physical exam Z00.00 Vitamin D deficiency E55.9 Additional Codes JIGAR-7 Assessment Billing - JIGAR-7 Assessment Tool: JIGAR-7 Assessment 12782 ([id number]) Assessment & Plan Assessment & Plan (1) Annual physical exam: Code(s): Z00.00 - Encounter for general adult medical examination without abnormal findings Category: Medical Plan: Well-balanced diet regular physical activity weight loss discussed with the patient. 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 smear by desk reporter. For chronic GERD patient will continue PPI and has an appointment with GI at [facility] to discuss repeat EGD (2) Vitamin D deficiency: Code(s): E55.9 - Vitamin D deficiency, unspecified Category: Medical Plan: Continue vitamin-D supplement Orders: Orders Comprehensive Brady. Panel Fast 1 Year E55.9 - Vitamin D deficiency, unspecified, Z00.00 - Encounter for general adult medical examination without abnormal findings Complete Blood Count Auto Diff 1 Year E55.9 - Vitamin D deficiency, unspecified, Z00.00 - Encounter for general adult medical examination without abnormal findings Lipid Panel 1 Year E55.9 - Vitamin D deficiency, unspecified, Z00.00 - Encounter for general adult medical examination without abnormal findings TSH reflex Free T4 1 Year E55.9 - Vitamin D deficiency, unspecified, Z00.00 - Encounter for general adult medical examination without abnormal findings Vitamin D 25-OH Total 1 Year E55.9 - Vitamin D deficiency, unspecified, Z00.00 - Encounter for general adult medical examination without abnormal findings Medications: Refilled albuterol sulfate 90 mcg/actuation 1 puff PO Q4H PRN 8.5 grams 4RF wheezing Discontinued Advair HFA 115-21 mcg/actuation (fluticasone propion-salmeterol) Discontinued Reason: Doctor's Order 2 puffs inhalation BID 12 grams 3RF NS
[2024-05-08 08:40] VITALS: BP 118/76; PULSE 61; O2SAT 99; BMI 33.3
== END 2024-05-08 09:12 | disposition home or self-care (01) ==
PROVIDERS: PCP Internal Medicine; Visit Provider Internal Medicine
DX: Z00.00 Encounter for general adult medical examination without abnormal findings (principal); E55.9 Vitamin D deficiency, unspecified

== ENCOUNTER → 2024-05-08 08:38 | Outpatient (BNVA) | payer OTHER, SELFPAY | PROVIDERS: PCP Internal Medicine; Visit Provider Internal Medicine | DX: Z00.00 Encounter for general adult medical examination without abnormal findings (principal); E55.9 Vitamin D deficiency, unspecified; Z79.899 Other long term (current) drug therapy | CPT/HCPCS: 96127 ==

== ENCOUNTER 2024-07-31 08:00 | Outpatient (AMB) | payer OTHER, MEDICARE, SELFPAY ==
[2024-07-31 08:04] VITALS: BP 117/60; PULSE 62; BMI 33.7
--- NOTE | 2024-07-31 08:04 | A.OFFVIS_ITS ---
Vital Signs 07/31/24 08:04 Height 5 ft 4 in Weight 196 lb 3.382 oz BMI 33.7 BP 117/60 Blood Pressure Location Lt brachial Position Sitting Pulse 62 Intake Visit Reasons: 1 year follow up Intake Note: Felicita presents in the office as a 1 year follow up. CC: She states that she is not having any concerns from her last visit - all the same. Allergies cortisone Adverse Reaction (Verified 07/31/24 08:06) Hypertension HPI HPI 1 year follow up: Details: LAST VISIT: Greene esophagus Tubular adenoma of colon Reactive gastropathy GERD (gastroesophageal reflux disease) Plan Patient will continue pantoprazole every morning half an hour before breakfast. The importance of avoiding dietary triggers stressed with patient. 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 Currently patient is tolerating pantoprazole well. Stopped taking omeprazole. Dose not strong enough. Patient will also take famotidine at bedtime. However her symptoms will continue patient can be switched to sucralfate. She is to call our office if she will have any GI concerning symptoms. Due to patient's insurance she will follow-up in this office next year, however if the need is to see GI specialist sooner patient will call the office and referral to [facility] or [facility] can be sent. Continue high-fiber diet. Patient was encouraged to increase fluid intake and activity to promote better bowel motility. Patient is agreeable to current plan of care and verbalizes understanding of instructions. She was given the opportunity to ask questions and all questions answered. ? Thank you for allowing me to participate in her care Medications New pantoprazole take one tablet half an hour before breakfast 40 mg PO DAILY 90 tabs 4RF K21.9 famotidine 40 mg PO BEDTIME 90 tabs 4RF K21.9 Discontinued omeprazole Discontinued Reason: Doctor's Order 20 mg PO DAILY 90 caps 0RF TODAY'S VISIT Patient is here today for follow-up. Patient reports that she has been doing okay, however whenever she tries to stop pantoprazole she will have acid reflux. Patient tries to avoid dietary triggers, she usually does not eat late at night however occasionally she will eat as late as 21:00. Patient usually does not go to sleep though 11 or midnight. Her snacks are usually cheese crackers. If she snacks late she will wake up with phlegm in her throat. She is taking famotidine as needed. Currently is taking pantoprazole 20 mg daily. Patient reports that she usually cooks her own food. Changed her diet. Avoids fried, g reasy or heavy food. [facility] Medical History (Updated 07/31/24 @ 08:[address] [facility]-) Reactive gastropathy Tubular adenoma of colon Bronchitis Microhematuria SOB (shortness of breath) Flu-like symptoms COVID-19 TIA (transient ischemic attack) Sinusitis Bilateral carotid bruits Leg pain, left Vitamin D deficiency Annual physical exam Surgical History History of esophagogastroduodenoscopy (EGD) H/O vein stripping H/O colonoscopy Family History Father No problems noted. Mother Hypertension CHF (congestive heart failure) Sister Mental health disorder Social History Housing: House Alcohol intake: current Alcohol intake frequency: a few times a month Patient Tobacco Use Status: Never used Tobacco e-Cigarette/Vaping Use: Never Used service: No Current occupational status: employed Cognitive needs: No Hearing needs: No Vision needs: Yes Review of Systems Const Denies weight gain and Denies weight loss ENT Reports no additional complaints, Denies dysphagia and Denies odynophagia Card Reports no additional complaints Resp Reports no additional complaints GI Denies abdominal pain, Denies belching, Denies melena, Reports bloating (Occasional), Denies change in bowel habits, Denies dysphagia, Denies excessive flatus, Denies dyspepsia, Reports heartburn (Occasional), Denies diarrhea, Denies loose stools, Denies nausea, Denies odynophagia and Denies vomiting Musc Reports no additional complaints Neuro Reports no additional complaints Psych Reports no additional complaints Endo Reports no additional complaints Physical Exam Vital Signs: BMI result Body Mass Index 33.7 Const General: healthy appearing and no acute distress Nutritional Appearance: obese Orientation/consciousness: patient oriented x3 Resp Effort & Inspection: normal respiratory effort, able to speak in complete sentences, no tracheal deviation and symmetric chest movement Auscultation: clear to auscultation bilaterally Cardio Rate: regular rate GI Inspection: Yes normal to inspection, No distended and Yes obesity Palpation (GI): Soft to palpation, not firm, nontender and No hepatosplenomegaly present Auscultation: normal bowel sounds General: Yes no CVA tenderness Back/Spine/Pelvis Back: no CVA tenderness Skin General skin exam: elasticity normal, turgor normal and dry skin Neuro General: patient oriented x3 Psych Appearance: grossly normal Mental Status: mental status grossly normal Assessment & Plan Assessment & Plan (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 Arce Code(s): D12.6 - Benign neoplasm of colon, unspecified Category: Medical (3) Reactive gastropathy: Code(s): K31.89 - Other diseases of stomach and duodenum Category: Medical (4) GERD (gastroesophageal reflux disease): Code(s): K21.9 - Gastro-esophageal reflux disease without esophagitis Qualifiers: Esophagitis presence: without esophagitis Qualified Code(s): K21.9 - Gastro-esophageal reflux disease without esophagitis Plan Continue pantoprazole 20 mg daily. Discussed with patient the importance of avoiding dietary triggers and late night snacking. Staying upright for minimum 3 hours after meals discussed patient. Low FODMAP diet discussed with patient. Avoid carbs as much as possible specially late at night. Patient will try lactose free milk. Patient is to call our office next year for upper endoscopy to check for Barretts. Patient will call our office if she will have any GI concerning symptoms. Patient is agreeable to plan of care and verbalizes understanding of instructions. She was given the opportunity to ask questions and all questions answered. 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
== END 2024-07-31 08:33 | disposition home or self-care (01) ==
PROVIDERS: PCP Internal Medicine; Visit Provider Nurse Practitioner Family
DX: K22.70 Barrett's esophagus without dysplasia (principal); D12.6 Benign neoplasm of colon, unspecified; K31.89 Other diseases of stomach and duodenum; K21.9 Gastro-esophageal reflux disease without esophagitis
CPT/HCPCS: 99214; G2211

== ENCOUNTER 2024-11-13 12:08 | Outpatient (REF) | payer MEDICARE, SELFPAY ==
--- NOTE | ~2024-11-13 | XR_ITS ---
EXAMINATION: XR CERVICAL SPINE CLINICAL INFORMATION: M47.22 - Other spondylosis with radiculopathy, cervical region COMPARISON: None available. TECHNIQUE: 2 views of the cervical spine were obtained. FINDINGS: Craniocervical junction is intact. Degenerative changes in the periodontal C1 region. Marginal osteophyte formation and calcification in the anterior intervertebral disc C5-6. Loss of the physiologic lordosis. No acute cortical disruption or malalignment. No lytic or blastic lesions. XR/XR cervical spine 2V IMPRESSION: Spondylosis C5-6. Degenerative changes, periodontal/ C1 region. Electronically signed by: Wan James MD 11/14/2024 12:32 PM EDT
== END 2024-11-13 12:09 | disposition home or self-care (01) ==
LOC: HO.HMGCX 12:08
PROVIDERS: PCP Internal Medicine; Visit Provider Internal Medicine
DX: M47.22 Other spondylosis with radiculopathy, cervical region (principal)
CPT/HCPCS: 72040; 96127; 99212

== ENCOUNTER 2024-11-13 12:08 | Outpatient (AMB) | payer MEDICARE, SELFPAY ==
--- NOTE | 2024-11-13 12:32 | A.OFFPC_ITS ---
Vital Signs 11/13/24 12:33 Height 5 ft 4 in Weight 197 lb BMI 33.8 BP 124/78 Blood Pressure Location Rt brachial Position Sitting Respiration 18 Pulse 86 Pulse Source Pulse Oximeter Temp 98.6 F Temp Source Oral Pulse Oximetry (%) 97 Oxygen Delivery Method Room Air Intake Visit Reasons: L side neck and shoulder pain Intake Note: Pt is here today for a sick visit. Pt c/o L side neck and shoulder pain for 3 weeks now. Allergies cortisone Adverse Reaction (Verified 11/13/24 12:57) Hypertension Medication List - Last Reconciled 11/13/24 by Heike Gomez MD albuterol sulfate 90 mcg/actuation 1 puff PO Q4H PRN cholecalciferol (vitamin D3) 50 mcg PO DAILY clotrimazole 1% 1 appl topical BID comp.stocking,thigh,long,large 20-30 mmHg compr.stocking,knee,long,large 20-30 mmHg famotidine (Pepcid) 20 mg PO BEDTIME pantoprazole 20 mg PO DAILY Tobacco use date assessed: 11/13/24 Fall risk assessment: No Falls in past year Last assessed Fall Risk: 11/13/24 Dental Screening Dental Screen Date: 11/13/24 Did you have a dental visit in the last 12 months?: Yes Did you have a dental problem in the last 6 months where you did not have access to dental care?: No Was dental information given to patient?: Patient has dentist HPI L side neck and shoulder pain HPI Details Pt c/o L side neck burning pain radiating to L arm after straining LUE for 3 weeks. Patient had a similar pain 6 years ago which resolved after months of physical therapy and exercises. Patient had MRI of C-spine consistent with disc herniation 6 years ago. Patient denies weakness in the left extremity. [facility] Medical History Reactive gastropathy Tubular adenoma of colon Bronchitis Microhematuria SOB (shortness of breath) Flu-like symptoms COVID-19 TIA (transient ischemic attack) Sinusitis Bilateral carotid bruits Leg pain, left Vitamin D deficiency Annual physical exam Surgical History History of esophagogastroduodenoscopy (EGD) H/O vein stripping H/O colonoscopy Family History Father No problems noted. Mother Hypertension CHF (congestive heart failure) Sister Mental health disorder Social History Housing: House Alcohol intake: current Alcohol intake frequency: a few times a month Patient Tobacco Use Status: Never used Tobacco e-Cigarette/Vaping Use: Never Used service: No Current occupational status: employed Cognitive needs: No Hearing needs: No Vision needs: Yes Questionnaire PHQ-9 Over the last 2 weeks, how often have you been bothered by any of the following problems? 1. Little interest or pleasure in doing things: not at all 2. Feeling down, depressed, or hopeless: not at all 3. Trouble falling or staying asleep, or sleeping too much: not at all 4. Feeling tired or having little energy: not at all 5. Poor appetite or overeating: not at all 6. Feeling bad about yourself - or that you are a failure or have let yourself or your family down: not at all 7. Trouble concentrating on things, such as reading the newspaper or watching television: not at all 8. Moving or speaking so slowly that other people could have noticed. Or the opposite - being so fidgety or restless that you have been moving around a lot more than usual: not at all 9. Thoughts that you would be better off or of hurting yourself in some way: not at all Total score: 0 Depression Screening Interpretation: Negative Depression Screening Done: Yes [id number] - PHQ-9 Billing: Yes Source: Developed by Drs. Everardo Ferrara, Jenn Jaime, Luis Fernando Sawant and colleagues, with an educational sahra from [employer]. Thrive Questionnaire Date Thrive assessed: 11/13/24 I am a: Patient What is your living situation today?: I have a steady place to live Within the past 12 months, did the food you bought not last and you didn't have the money to get more?: I choose not to answer this question Within the past 12 months, did you worry whether your food would run out before you got money to buy more?: I choose not to answer this question Do you have trouble paying for medicines?: I choose not to answer this question Do you have trouble getting transportation to medical appointments?: No Do you have trouble paying your heating and electricity bill?: I choose not to answer this question Do you have trouble taking care of your child, family member or friend?: I choose not to answer this question Do you have trouble with day-to-day activities such as bathing, preparing meals, shopping, managing finances, etc.?: No Are you currently unemployed and looking for a job?: I choose not to answer this question Are you interested in more education?: No Please select the resources that you would like help with: None Currently or been in a relationship where the following occur: No concerns reported THRIVE Score: 0 AUDIT C Alcohol Use Questionnaire (AUDIT-C) 1. How often do you have a drink containing alcohol?: Never Total Score: 0 JIGAR-7 AMB Questionnaire JIGAR-7 Date JIGAR - 7 assessed: 11/13/24 Feeling nervous, anxious, or on edge: 0 = Not at all Not being able to stop or control worryin = Not at all Worrying too much about different things: 0 = Not at all Trouble relaxin = Not at all Being so restless that it is hard to sit still: 0 = Not at all Becoming easily annoyed or irritable: 0 = Not at all Feeling afraid as if something awful might happen: 0 = Not at all Total JIGAR-7 score (0-4 normal; 5-9 mild; 10-14 moderate; 15-21 severe): 0 Source: Developed by Drs. Everardo Ferrara, Jenn Jaime, Luis Fernando Sawant and colleagues, with an educational sahra from [employer]. JIGAR-7 Assessment Billing JIGAR-7 Assessment Tool: JIGAR-7 Assessment 27286 Review of Systems Const All systems reviewed & are unremarkable except as noted in HPI and below Reports no additional complaints Eyes Reports no additional complaints ENT Reports no additional complaints Card Reports no additional complaints Resp Reports no additional complaints GI Reports no additional complaints Physical exam (Primary Care) Vital Signs: Last Vital Signs Temp 98.6 F 11/13/24 12:33 Pulse 86 11/13/24 12:33 Resp 18 11/13/24 12:33 BP 124/78 11/13/24 12:33 Pulse Ox 97 11/13/24 12:33 Oxygen Delivery Method Room Air 11/13/24 12:33 BMI result Body Mass Index 33.8 Tobacco/Smoking Status: Tobacco use Status Tobacco use date assessed 11/13/24 11/13/24 13:01 Patient Tobacco Use Status Never used Tobacco 11/13/24 12:33 e-Cigarette/Vaping Use Never Used 11/13/24 12:33 PHQ-9: PHQ-9 Score PHQ-9: Total score 0 11/13/24 13:08 Depression Screening Interpretation: Negative Thrive Assessment: Date of Thrive Assessment Date Thrive assessed 11/13/24 11/13/24 12:33 Currently or been in a relationship where the following occur: No concerns reported Const General: no acute distress HENMT Head: Yes normal to inspection Ears: TM's normal bilaterally Face and sinus: Yes normal facial exam Eyes General: appearance normal, both eyes and all related structures Neck Neck: Yes no lymphadenopathy and Yes supple Resp Effort & Inspection: normal respiratory effort Auscultation: clear to auscultation bilaterally Cardio Rhythm: regular rhythm Heart sounds: S1 normal heart sound present and S2 normal heart sound present Back/Spine/Pelvis Other: Paraspinal tenderness in lower cervical region left more than right, there is a full range of motion in the left upper extremity and no focal tenderness, motor strength is 5/5 bilaterally Coding Level of Care Code Est Pt Level 3 (60592) Diagnoses Cervical radiculopathy due to degenerative joint disease of spine M47.22 Additional Codes JIGAR-7 Assessment Billing - JIGAR-7 Assessment Tool: JIGAR-7 Assessment 01093 ([id number]) PHQ-9 - 92547 - PHQ-9 Billing: Yes ([id number]) Assessment & Plan Assessment & Plan (1) Cervical radiculopathy due to degenerative joint disease of spine: Code(s): M47.22 - Other spondylosis with radiculopathy, cervical region Category: Medical Plan: Prednisone taper is prescribed x-ray of C-spine will be obtained and patient will be referred to physical therapy. If her symptoms persist MRI will be scheduled Orders: Orders XR cervical spine 2V Today M47.22 - Other spondylosis with radiculopathy, cervical region PT Evaluation and Treatment Today M47.22 - Other spondylosis with radiculopathy, cervical region Medications: New prednisone Four tablets p.o. q.d. for 4 days then 3 tablets p.o. q.d. for 4 days then 2 tablets p.o. q.d. for 4 days then 1 tablet p.o. q.d. for 4 days 10 mg PO DAILY 40 tabs 0RF
[2024-11-13 12:33] VITALS: BP 124/78; PULSE 86; RESP 18; TEMP 37; O2SAT 97; BMI 33.8
== END 2024-11-13 14:33 | disposition home or self-care (01) ==
LOC: HO.HMCC 12:08
PROVIDERS: PCP Internal Medicine; Visit Provider Internal Medicine
DX: M47.22 Other spondylosis with radiculopathy, cervical region (principal)

== ENCOUNTER → 2024-11-13 13:56 | Outpatient (BNV) | payer MEDICARE, SELFPAY | PROVIDERS: PCP Internal Medicine; Visit Provider Radiology Diagnostic Radiology | DX: M47.812 Spondylosis without myelopathy or radiculopathy, cervical region (principal); M50.30 Other cervical disc degeneration, unspecified cervical region | CPT/HCPCS: 72040 ==

== ENCOUNTER 2025-04-26 10:17 | Outpatient (AMB) | payer MEDICARE, SELFPAY ==
--- NOTE | 2025-04-26 10:20 | A.OFFPC_ITS ---
Vital Signs 04/26/25 10:21 Height 5 ft 4 in Weight 193 lb BMI 33.1 BP 138/78 Blood Pressure Location Lt brachial Position Sitting Respiration 18 Pulse 74 Pulse Source Pulse Oximeter Temp 97.8 F Temp Source Oral Pulse Oximetry (%) 96 Oxygen Delivery Method Room Air Intake Visit Reasons: HDF-having palpitations and elevated BP Intake Note: Pt is here today for a ER follow up visit. Pt states that her Bp has been running high. Allergies cortisone Adverse Reaction (Verified 04/26/25 10:25) Hypertension Medication List - Last Reconciled 04/26/25 by Heike Gomez MD albuterol sulfate 90 mcg/actuation 1 puff PO Q4H PRN cholecalciferol (vitamin D3) 50 mcg PO DAILY comp.stocking,thigh,long,large 20-30 mmHg compr.stocking,knee,long,large 20-30 mmHg famotidine (Pepcid) 20 mg PO BEDTIME pantoprazole 20 mg PO DAILY Tobacco use date assessed: 04/26/25 Fall risk assessment: No Falls in past year Last assessed Fall Risk: 04/26/25 Dental Screening Dental Screen Date: 11/13/24 Did you have a dental visit in the last 12 months?: Yes Did you have a dental problem in the last 6 months where you did not have access to dental care?: No Was dental information given to patient?: Patient has dentist HPI HDF-having palpitations and elevated BP HPI Details Pt presents for follow-up. She had C-spine fusion surgery 1 month ago by . She recovered well. Patient complains of fluctuating BP up to 160/90 on and off usually early in the morning with associated palpitations for the last 2 weeks. Patient has been checking her blood pressure throughout the day with the highest reading and 160/90 and lowest readings down to 100/60. She denies chest pain shortness or breath diaphoresis associated with the symptoms. Patient has been under lot of stress related to her 4-year-old grandson and the child's mother sharing custody with the patient's son. [facility] Medical History (Updated 04/28/25 @ 08:14 by Heike Gomez MD) Anxiety Fluctuating blood pressure Palpitations Reactive gastropathy Tubular adenoma of colon Bronchitis Microhematuria SOB (shortness of breath) Flu-like symptoms COVID-19 TIA (transient ischemic attack) Sinusitis Bilateral carotid bruits Leg pain, left Vitamin D deficiency Annual physical exam Surgical History (Updated 04/28/25 @ 08:14 by Heike Gomez MD) S/P cervical spinal fusion History of esophagogastroduodenoscopy (EGD) H/O vein stripping H/O colonoscopy Family History Father No problems noted. Mother Hypertension CHF (congestive heart failure) Sister Mental health disorder Social History Housing: House Alcohol intake: current Alcohol intake frequency: a few times a month Patient Tobacco Use Status: Never used Tobacco e-Cigarette/Vaping Use: Never Used service: No Current occupational status: employed Cognitive needs: No Hearing needs: No Vision needs: Yes Questionnaire PHQ-9 Over the last 2 weeks, how often have you been bothered by any of the following problems? 1. Little interest or pleasure in doing things: not at all 2. Feeling down, depressed, or hopeless: not at all 3. Trouble falling or staying asleep, or sleeping too much: not at all 4. Feeling tired or having little energy: not at all 5. Poor appetite or overeating: not at all 6. Feeling bad about yourself - or that you are a failure or have let yourself or your family down: not at all 7. Trouble concentrating on things, such as reading the newspaper or watching television: not at all 8. Moving or speaking so slowly that other people could have noticed. Or the opposite - being so fidgety or restless that you have been moving around a lot more than usual: not at all 9. Thoughts that you would be better off or of hurting yourself in some way: not at all Total score: 0 Depression Screening Interpretation: Negative Depression Screening Done: Yes Source: Developed by Drs. Everardo Ferrara, Jenn Jaime, Luis Fernando Sawant and colleagues, with an educational sahra from [employer]. Thrive Questionnaire Date Thrive assessed: 11/13/24 I am a: Patient What is your living situation today?: I have a steady place to live Within the past 12 months, did the food you bought not last and you didn't have the money to get more?: I choose not to answer this question Within the past 12 months, did you worry whether your food would run out before you got money to buy more?: I choose not to answer this question Do you have trouble paying for medicines?: I choose not to answer this question Do you have trouble getting transportation to medical appointments?: No Do you have trouble paying your heating and electricity bill?: I choose not to answer this question Do you have trouble taking care of your child, family member or friend?: I choose not to answer this question Do you have trouble with day-to-day activities such as bathing, preparing meals, shopping, managing finances, etc.?: No Are you currently unemployed and looking for a job?: I choose not to answer this question Are you interested in more education?: No THRIVE Score: 0 JIGAR-7 AMB Questionnaire JIGAR-7 Date JIGAR - 7 assessed: 11/13/24 Feeling nervous, anxious, or on edge: 0 = Not at all Not being able to stop or control worryin = Not at all Worrying too much about different things: 1 = Several days Trouble relaxin = Not at all Being so restless that it is hard to sit still: 0 = Not at all Becoming easily annoyed or irritable: 0 = Not at all Feeling afraid as if something awful might happen: 0 = Not at all Total JIGAR-7 score (0-4 normal; 5-9 mild; 10-14 moderate; 15-21 severe): 1 Source: Developed by Drs. Everardo Ferrara, Jenn Jaime, Luis Fernando Sawant and colleagues, with an educational sahra from [employer]. Review of Systems Const All systems reviewed & are unremarkable except as noted in HPI and below Eyes Reports no additional complaints ENT Reports no additional complaints Card Reports no additional complaints Resp Reports no additional complaints GI Reports no additional complaints Reports no additional complaints Physical exam (Primary Care) Vital Signs: Last Vital Signs Temp 97.8 F 04/26/25 10:21 Pulse 74 04/26/25 10:21 Resp 18 04/26/25 10:21 BP 138/78 04/26/25 10:21 Pulse Ox 96 04/26/25 10:21 Oxygen Delivery Method Room Air 04/26/25 10:21 BMI result Body Mass Index 33.1 Tobacco/Smoking Status: Tobacco use Status Tobacco use date assessed 04/26/25 04/26/25 10:27 Patient Tobacco Use Status Never used Tobacco 04/26/25 10:27 e-Cigarette/Vaping Use Never Used 04/26/25 10:27 PHQ-9: PHQ-9 Score PHQ-9: Total score 0 04/26/25 14:33 Depression Screening Interpretation: Negative Thrive Assessment: Date of Thrive Assessment Date Thrive assessed 11/13/24 04/26/25 10:27 Const General: no acute distress HENMT Head: Yes normal to inspection General nose exam: Normal external nose present Face and sinus: Yes normal facial exam Mouth: Normal oral and palatal mucosa present Eyes General: appearance normal, both eyes and all related structures Neck Neck: Yes supple Resp Effort & Inspection: normal respiratory effort Auscultation: clear to auscultation bilaterally Cardio Rhythm: regular rhythm Heart sounds: S1 normal heart sound present and S2 normal heart sound present GI Inspection: Yes normal to inspection Palpation (GI): Soft to palpation Coding Level of Care Code Est Pt Level 4 (27904) Diagnoses Palpitations R00.2 Anxiety F41.9 Fluctuating blood pressure I99.8 Assessment & Plan Assessment & Plan (1) Palpitations: Code(s): R00.2 - Palpitations Category: Medical Plan: For intermittent palpitation obtain 3 day Holter (2) Anxiety: Code(s): F41.9 - Anxiety disorder, unspecified Category: Medical Plan: Stress management counseling discussed with the patient. 25 mg of Zoloft will be started. Patient will follow-up in 1 month (3) Fluctuating blood pressure: Code(s): I99.8 - Other disorder of circulatory system Category: Medical Plan: Fluctuating blood pressure is most likely related to increased stress and anxiety. She declined taking medications for blood pressure. Patient will continue to monitor her blood pressure and record the readings but was advised not to check a more than twice a day. Low-sodium diet regular physical activity discussed with the patient Orders: Orders ECG 3 day holter monitor 04/26/25 R00.2 - Palpitations Medications: New sertraline 25 mg PO DAILY 90 tabs 0RF
[2025-04-26 10:21] VITALS: BP 138/78; PULSE 74; RESP 18; TEMP 36.6; O2SAT 96; BMI 33.1
== END 2025-04-26 11:13 | disposition home or self-care (01) ==
LOC: HO.HMCC 10:17
PROVIDERS: PCP Internal Medicine; Visit Provider Internal Medicine
DX: R00.2 Palpitations (principal); F41.9 Anxiety disorder, unspecified; I99.8 Other disorder of circulatory system

== ENCOUNTER → 2025-04-26 10:17 | Outpatient (BNVA) | payer MEDICARE, SELFPAY | PROVIDERS: PCP Internal Medicine; Visit Provider Internal Medicine | DX: R00.2 Palpitations (principal); F41.9 Anxiety disorder, unspecified; I99.8 Other disorder of circulatory system; Z63.8 Other specified problems related to primary support group; Z98.1 Arthrodesis status | CPT/HCPCS: 96127; 99212 ==

== ENCOUNTER 2025-05-23 12:41 | Outpatient (AMB) | payer MEDICARE, SELFPAY ==
--- NOTE | 2025-05-23 12:51 | A.OFFVIS_ITS ---
Intake Vital Signs 05/23/25 13:00 Height 5 ft 4 in Weight 197 lb BMI 33.8 BP 110/64 Blood Pressure Location Lt brachial Position Sitting Respiration 16 Pulse 73 Pulse Source Pulse Oximeter Temp 97.8 F Temp Source Oral Pulse Oximetry (%) 98 Oxygen Delivery Method Room Air Intake Visit Reasons: AWV G0438 Intake Note: Pt is here today for her AWV Allergies cortisone Adverse Reaction (Verified 05/23/25 13:05) Hypertension sulfa Adverse Reaction (Uncoded 05/23/25 13:05) facial tingling Medication List - Last Reconciled 05/23/25 by Heike Gomez MD albuterol sulfate 90 mcg/actuation 1 puff PO Q4H PRN cholecalciferol (vitamin D3) 50 mcg PO DAILY comp.stocking,thigh,long,large 20-30 mmHg compr.stocking,knee,long,large 20-30 mmHg famotidine (Pepcid) 20 mg PO BEDTIME pantoprazole 20 mg PO DAILY sertraline 25 mg PO DAILY HPI AWV G0438 HPI Details PATIENT PRESENTS FOR ANNUAL VISIT. She complains of persistent dyspnea on exertion when walking up the stairs with occasionally left upper chest discomfort lasting a few minutes. Patient also reports episodes of PND and o rthopnea up to twice a week. She has been sleeping with her head elevated which has been helpful. Patient has been using albuterol inhaler for dyspnea with mixed results. She denies cough or wheezing. Patient had a 3 day Holter at [facility] and results are pending. Initiated the conversation about Advanced Directives. Advanced Directives help? patients prepare for current and future decisions about their medical treatment? and place of care. Discussed with patient that it is a process where a patients? current condition and prognosis are reviewed, their wishes for information? regarding their illness are elicited, and likely medical dilemmas are presented? and options discussed. The form can be amended as needed, reviewed yearly and? make changes as needed IPPE/AWV ? year old presents? for her ? Annual? Wellness Visit, initial visit.? Medical / Social History Reviewed? Past Medical History ?Yes? . ? [place]? of Care / Care Team list updated ?Yes . ? Surgical/Hospitalization? History ?Yes . ? Current Medications? (including OTC and supplements) ?Yes . ? Family History ?Yes? . ? Tobacco? Control form ?Yes . ? AUDIT-C (Alcohol use) form? ?Yes . ? Illicit drug use in Social? History ?Yes . ? Current diagnosis of? depression? ?No ? Appropriate PHQ2/PHQ9? completed ?Yes . ? Data entered by ?Medical? [employer] Salesperson and reviewed by provider ? Fall Risk ? Fall? History? Have you had any falls with? injury in the past year? ?No . ? Have you had two or more? falls in the past year? ?No . ? Fall Risk Assessment: ?No? falls in the past year . ? HRA filled out by? the patient, reviewed by Provider and scanned. ? IPPE/AWV ? Balance? [place]? ?Yes . ? Tandem? walk ?Yes . ? Walk and? Turn ?Yes . ? Rise from? sit to stand ?Yes . ?Vision? Corrective? lens ?Yes ? Vision? screen ? Up-to-date, has an appointment [] for vision? screening and glaucoma screening ?Hearing? Whisper? test ?pass .? Initiated the conversation about Advanced Directives. Advanced Directives help? patients prepare for current and future decisions about their medical treatment? and place of care. Discussed with patient that it is a process where a patients? current condition and prognosis are reviewed, their wishes for information? regarding their illness are elicited, and likely medical dilemmas are presented? and options discussed. The form can be amended as needed, reviewed yearly and? make changes as needed Written? Plan?Completed. See Patient? Documents. [facility] Medical History (Updated 05/23/25 @ 13:53 by Heike Gomez MD) Asthma Anxiety Fluctuating blood pressure Palpitations Reactive gastropathy Tubular adenoma of colon Bronchitis Microhematuria SOB (shortness of breath) Flu-like symptoms COVID-19 TIA (transient ischemic attack) Sinusitis Bilateral carotid bruits Leg pain, left Vitamin D deficiency Annual physical exam Surgical History (Updated 04/28/25 @ 08:14 by Heike Gomez MD) S/P cervical spinal fusion History of esophagogastroduodenoscopy (EGD) H/O vein stripping H/O colonoscopy Family History Father No problems noted. Mother Hypertension CHF (congestive heart failure) Sister Mental health disorder Social History Housing: House Alcohol intake: current Alcohol intake frequency: a few times a month Patient Tobacco Use Status: Never used Tobacco e-Cigarette/Vaping Use: Never Used service: No Current occupational status: employed Cognitive needs: No Hearing needs: No Vision needs: Yes Questionnaire Medicare Wellness Checkup [age] What gender do you identify with?: female During the past 4 weeks, how much have you been bothered by emotional problems such as feeling anxious, depressed, irritable, sad or downhearted, and blue?: slightly During the past 4 weeks, has your physical & emotional health limited your social activities with family, friends, neighbors, or groups?: slightly During the past 4 weeks, how much bodily pain have you generally had?: mild pain During the past 4 weeks, was someone available to help you if you needed & wanted help?: yes, as much as I wanted During the past 4 weeks, what was the hardest physical activity you could do for at least 2 minutes?: moderate Can you get to places out of walking distance without help? (For eg., can you travel alone on buses, taxis or drive your car?): Yes Can you go shopping for groceries or clothes without someone's help?: Yes Can you prepare your own meals?: Yes Can you do your housework without help?: Yes Because of any health problems, do you need the help of another person with your personal care needs such as eating, bathing, dressing or getting around the house?: No Can you handle your own money without help?: Yes During the past 4 weeks, how would you rate your health in general?: good During the past 4 weeks how have things been going for you?: good & bad parts about equal Are you having difficulties driving your car?: no Do you always fasten your seat belt when you are in a car?: yes, usually During past 4 weeks, have you been bothered by the following: never: Falling or dizzy when standing up, Sexual problems?, Trouble eating well?, Teeth or denture problems? and Problems using the telephone? and sometimes: Tiredness or fati lizzeth? Have you fallen 2 or more times in the past year?: No Are you afraid of falling?: No Are you a smoker?: no During the past 4 weeks, how many drinks of wine, beer, or other alcoholic beverages did you have?: no alcohol at all Do you exercise for about 20 minutes 3 or more times a week?: yes, most of the time Have you been given information to help with the following?: no: Hazards in your house that might hurt you? and no: Keeping track of your medications? How often do you have trouble taking medicines the way you have been told to take them?: I always take medicine as prescribed How confident are you that you can control & manage most of your health problems?: somewhat confident What is your race?: White Mini Mental State Exam (MMSE) Orientation What is the (year) (season) (date) (day) (month)?: year (2024), season (Fall), date (05/23/25), day () and month (April) Where are we (state) (county) (town or city) (hospital) (floor)?: state ([facility]), county ([place]), town or city ([place]), hospital/clinic ([facility]) and floor Registration Name of 3 unrelated objects clearly and slowly, then ask patient to repeat all 3 of them. (1st repeat determines score. Make sure they can repeat all three): object 1, object 2 and object 3 Attention & Calculation (CHOOSE ONE) Spell WORLD backwards (DLROW): 5 letters Recall Ask patient to repeat the 3 items from question #3.: object 1, object 2 and object 3 Language Show patient a wristwatch & ask what it is. Repeat for pencil.: watch and pencil Ask the patient to repeat the phrase 'No ifs, ands, or buts' after you.: correct Ask the patient to 'take a piece of paper with their right hand' 'fold paper in half' 'place paper on floor': take paper in right hand, fold paper in half and place paper on floor Print the sentence 'CLOSE YOUR EYES' on a piece. If patient actually closes eyes then score.: followed written direction Give patient a blank piece of paper & ask to write a sentence. Score if it contains a noun & verb.: sentence contains subject and verb Score Score: 29 Review of Systems Const All systems reviewed & are unremarkable except as noted in HPI and below Eyes Reports no additional complaints ENT Reports no additional complaints Card Reports no additional complaints Resp Reports no additional complaints GI Reports no additional complaints Reports no additional complaints Musc Reports no additional complaints Physical Exam Vital Signs: Last Vital Signs Temp 97.8 F 05/23/25 13:00 Pulse 73 05/23/25 13:00 Resp 16 05/23/25 13:00 BP 110/64 05/23/25 13:00 Pulse Ox 98 05/23/25 13:00 Oxygen Delivery Method Room Air 05/23/25 13:00 BMI result Body Mass Index 33.8 Const General: no acute distress HEENT Head: Yes normal to inspection Ears: TM's normal bilaterally Neck Neck: Yes no lymphadenopathy and Yes supple Resp Effort & Inspection: normal respiratory effort Auscultation: diminished lung sounds Cardio Rhythm: regular rhythm Heart sounds: S1 normal heart sound present and S2 normal heart sound present GI Inspection: Yes normal to inspection Palpation (GI): Soft to palpation Percussion: Yes normal to percussion Auscultation: normal bowel sounds Extrem General: Yes no clubbing, cyanosis or edema Assessment & Plan Assessment & Plan (1) TINEO (dyspnea on exertion): Code(s): R06.09 - Other forms of dyspnea Plan: Persistent dyspnea on exertion with PND and orthopnea obtain echocardiogram to evaluate for ejection fraction. Chest x-ray will be checked. After the results of Holter and echo available patient will have nuclear stress test to rule out ischemia (2) Asthma: Comment: Mild Code(s): J45.909 - Unspecified asthma, uncomplicated Plan: For history of asthma and worsening shortness or breath dyspnea on exertion obtain PFTs and check chest x-ray. Patient will continue albuterol as needed (3) Annual physical exam: Code(s): Z00.00 - Encounter for general adult medical examination without abnormal findings Plan: Well-balanced diet regular exercise weight loss discussed with the patient. 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 by fan mail clerk (4) Ingrown toenail: Code(s): L60.0 - Ingrowing nail Plan: Referred to Podiatry Orders: Orders [place] Echo Limited Today R00.2 - Palpitations, R06.09 - Other forms of dyspnea PFT pulmonary function test Today J45.909 - Unspecified asthma, uncomplicated XR chest 1V Today R05.9 - Cough, unspecified, R06.09 - Other forms of dyspnea Referrals Podiatry Referral L60.0 - Ingrowing nail Medications: Refilled albuterol sulfate 90 mcg/actuation 1 puff PO Q4H PRN 8.5 grams 4RF wheezing Coding Level of Care Code Medicare Subsequent (G0439) Diagnoses TINEO (dyspnea on exertion) R06.09 Asthma J45.909 Annual physical exam Z00.00 Ingrown toenail L60.0 CPT Codes Advance Care Planning - Advance Care Planning discussion: On file, no changes ([id number]) Advance Care Planning - Time spent: 1-15 minutes, on File ([id number]) Advance Care Planning Advance Care Planning discussion: On file, no changes Forms completed: Health Care Proxy Time spent: 1-15 minutes, on File
[2025-05-23 13:00] VITALS: BP 110/64; PULSE 73; RESP 16; TEMP 36.6; O2SAT 98; BMI 33.8
== END 2025-05-23 13:52 | disposition home or self-care (01) ==
PROVIDERS: PCP Internal Medicine; Visit Provider Internal Medicine
DX: Z00.00 Encounter for general adult medical examination without abnormal findings (principal); R06.09 Other forms of dyspnea; J45.909 Unspecified asthma, uncomplicated; L60.0 Ingrowing nail

== ENCOUNTER 2025-05-24 13:16 | Outpatient (REF) | payer MEDICARE, SELFPAY ==
--- NOTE | ~2025-05-24 | XR_ITS ---
EXAMINATION: XR CHEST CLINICAL INFORMATION: R06.09 - Other forms of dyspnea COMPARISON: February 18, 2022 TECHNIQUE: 2 views of the chest were obtained. FINDINGS: No significant abnormality is noted involving the heart, lungs, mediastinum, or soft tissues. Anterior osteophytes are present throughout the thoracic spine. XR/XR chest 2V IMPRESSION: No acute disease Electronically signed by: William Mendiola MD 05/24/2025 01:30 PM EDT
== END 2025-05-24 13:17 | disposition home or self-care (01) ==
LOC: HO.HMGCX 13:16
PROVIDERS: PCP Internal Medicine; Visit Provider Internal Medicine
DX: R06.09 Other forms of dyspnea (principal); R05.9 Cough, unspecified
CPT/HCPCS: 71046

== ENCOUNTER → 2025-05-24 13:20 | Outpatient (BNV) | payer MEDICARE, SELFPAY | PROVIDERS: PCP Internal Medicine; Visit Provider Radiology Diagnostic Radiology | DX: R06.09 Other forms of dyspnea (principal) | CPT/HCPCS: 71046 ==

== ENCOUNTER 2025-07-02 09:04 | Outpatient (AMB) | payer MEDICARE, SELFPAY ==
[2025-07-02 09:19] VITALS: BMI 33.8
--- NOTE | 2025-07-02 09:19 | A.OFFVIS_ITS ---
Vital Signs 07/02/25 09:19 Height 5 ft 4 in Weight 197 lb BMI 33.8 Intake Visit Reasons: Ingrowing Nail Intake Note: Felicita is a 64 year old female who presents to the office today as a new patient for an ingrown nail referred by her PCP Dr. Gomez. Pt states the ingrown is located on her right hallux on the lateral aspect of the toe and this has been going on for 5 years. She has tried epsom salt soaks and due to fungus being present she has also tried fungal cream and found slight relief for her symptoms. She denies experiencing any pain at this time. Allergies cortisone Adverse Reaction (Verified 07/02/25 09:21) Hypertension sulfa Adverse Reaction (Uncoded 05/23/25 13:05) facial tingling HPI Comments Details: Chief Complaint The patient presents for evaluation of an ingrown toenail. History of Present Illness The patient is a 64 year old female presenting for evaluation of a possible ingrown toenail. She reports the problem has been present for over five years, but is not currently inflamed. When she experiences pain, she uses a small tool to dig underneath the nail and lift it up. She states that if she does not perform this self-care for more than one to two weeks, the nail starts to impinge on the skin. She has tried various home remedies including soaks with apple cider vinegar, baking soda, and salt water without success. She has never had an infection because she is proactive with her self-care. The patient reports significant sweating of her feet, which she manages by washing them twice a day. Her medical history includes GERD, which she manages with a proton pump inhibitor. She denies a history of diabetes or smoking. She is retired from a previously stressful job. Medical History: - Gastroesophageal reflux disease (GERD), treated with a proton pump inhibitor. - Denies diabetes. Medications: - Proton pump inhibitor (PPI) for GERD. Social History: - Does not smoke. - Reports her feet sweat a lot, and she washes them twice a day. Employment - The patient is retired. [facility] Medical History (Updated 07/02/25 @ 10:05 by Soto Robison DPM) Asthma Anxiety Fluctuating blood pressure Palpitations Reactive gastropathy Tubular adenoma of colon Bronchitis Microhematuria SOB (shortness of breath) Flu-like symptoms COVID-19 TIA (transient ischemic attack) Sinusitis Bilateral carotid bruits Leg pain, left Vitamin D deficiency Annual physical exam Surgical History (Updated 04/28/25 @ 08:14 by Heike Gomez MD) S/P cervical spinal fusion History of esophagogastroduodenoscopy (EGD) H/O vein stripping H/O colonoscopy Family History Father No problems noted. Mother Hypertension CHF (congestive heart failure) Sister Mental health disorder Social History Housing: House Alcohol intake: current Alcohol intake frequency: a few times a month Patient Tobacco Use Status: Never used Tobacco e-Cigarette/Vaping Use: Never Used service: No Current occupational status: employed Cognitive needs: No Hearing needs: No Vision needs: Yes Physical Exam Exam Exam: Vital Signs: BMI result Body Mass Index 33.8 Assessment & Plan Assessment & Plan (1) Paronychia of great toe of right foot: Code(s): L03.031 - Cellulitis of right toe Category: Medical Plan: * - The patient has a chronic, involuted toenail causing intermittent pain, which she manages with self-care. * - The condition is likely exacerbated by underlying onychomycosis. * - Conservative management with a special tape applied to the nail to gradually lift it over several months was recommended as an initial option. * - The surgical option of a partial nail avulsion was discussed as a possibility should the condition worsen, become persistently painful, or get infected. This procedure would involve incising the nail border back to the matrix and potentially applying a chemical to prevent regrowth, which may cause some pain and irritation. It would be performed under local anesthetic via a toe block injection, which is most effective in the absence of infection. * - A postop surgical shoe would be provided to keep the toe exposed and comfortable. * The patient would like to book the heel lift the procedure for the spring season. * Follow up in 2-3 months. Plan Counseling was provided regarding the nature of involuted nails. The treatment options were discussed, including conservative management with a corrective tape and a more definitive surgical partial nail avulsion procedure. The details of the surgical procedure, including the use of local anesthetic and potential for chemical matrixectomy, were explained. It was explained that complete nail avulsion for fungal nails is not typically standard practice as the nail typically regrows in the same problematic manner. Contributing factors such as fungal involvement and age-related changes. The patient was reassured that there is no immediate davis to undergo a procedure. The patient was instructed the patient to present earlier if she has any signs of infection. Coding Level of Care Code New Pt Level 4 (17168) Diagnoses Paronychia of great toe of right foot L03.031 Time Spent (min) 30
== END 2025-07-02 09:39 | disposition home or self-care (01) ==
LOC: HO.HPODS 09:04
PROVIDERS: PCP Internal Medicine; Visit Provider Student in an Organized Health Care Education/Training Program
DX: L03.031 Cellulitis of right toe (principal)
CPT/HCPCS: 99204

== ENCOUNTER → 2025-07-02 09:04 | Outpatient (BNVA) | payer MEDICARE, SELFPAY | PROVIDERS: PCP Internal Medicine; Visit Provider Student in an Organized Health Care Education/Training Program | DX: L03.031 Cellulitis of right toe (principal) | CPT/HCPCS: 99202 ==